=== PATIENT | female | born 2000 | race Hispanic/Latino ===

== ENCOUNTER 2021-07-03 08:13 | Emergency (ER) | payer OTHER ==
--- OUTSIDE RECORDS SUMMARY | 2021-07-03 08:23 | XMS REPORT | Continuity of Care Document ---
:2000 Author Organization [facility] t Address [address] [place] [address] Care Team Providers Name Role Phone Chun CRAIG, A Primary Care Physician Chan CRAIG, Gene Attending Clinician Chun CRAIG, Jolanta Attending Clinician Doctor Unassigned, Name Attending Clinician Unavailable JESUS GILES Attending Clinician Unavailable JESUS GILES Attending Clinician Unavailable CHUN, Jolanta Attending Clinician Unavailable Lab, Fam Pob I Attending Clinician Unavailable 2, Lab Attending Clinician Unavailable Mango CRAIG, J Attending Clinician Payers Payer Name Policy Type Policy Number Effective Date Expiration Date S ource Problems Condition Condition Condition Status Onset Resolution Last Treating Co mments Source Name Details Category Date Date Treatment Clinician Date B12 B12 Disease Active [facility] deficiency deficiency 04-17 it y of 00:: [address] 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 03-30 ity of 00:: [address] Vitamin D Vitamin D Disease Active 2019- Uni vers deficiency deficiency 03-30 it y of 00:00: [place] [facility] Urinary Urinary Disease Active [facility] incontinen incontinen 03-28 [place] of [place] due [place] cognitive [place] impairment impairment Br anch Intellectu Intellectu Disease Active U jules al al 02-13 it[facility] [place] disability disability [place] [facility] Mental and Mental and Disease Active U jules behavioral behavioral 02-13 it y of problem problem 00:00: [place] [facility] Medication Medication Disease Active Overview : Univers management management -19 Formattin ity of 00:00: g of this [place] 00 note Medical might be Branch different from the original. 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 00:[place] [facility] thoracolum thoracolum Br anch bar region bar region Irritabili Irritabili Disease Active U jules ty ty 2-15 ity of 00:00: [place] [facility] Anxiety Anxiety Disease Active Univers 2-15 ity of 00:00: [place] [facility] 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 U nivers ly ly 1-20 ity of 00:00: [address] Allergies, Adverse Reactions, Alerts Allergy Allergy Status Severity Reaction(s) Onset Inactive Treating Comm ents Source Name Type Date Date Clinician No Known DA Active [facility]ie 9-05 [place] 00:[facility]: [facility] 00 [facility] No Known DA Active U [facility] Allergie 8-19 [place] 00:[facility]: [facility] 00 [facility] NO KNOWN Drug Active Unknown-Cmnt Un dajuan DRUG Class 3-30 ity of ALLERGIE 00:00: [address] No Known Propensi Active Unknown - Uni vers Drug ty to See comments 3-30 ity of Allergie adverse 00:00: [place] reaction [facility] Social History Social Habit Start Date Stop Date Quantity Comments Source Exposure to Not sure [facility] SARS-CoV-2 [facility] (event) Branch Alcohol intake 2021-03-14 2021-03-14 Current [facility] 00:00:00 00:00:00 non-drinker of [facility] alcohol [place] (finding) Tobacco use and 2012-11-11 2012-11-11 Never used Universit y of exposure 00:00:00 00:00:00 [facility] Sex Assigned At [birth year] Universit y of 00:00:00 00:00:00 [facility] Smoking Status Start Date Stop Date Source Never smoker [facility] Medications Ordered Filled Start Stop Current Ordering Indication Dosage Frequency Signature Comments Components Source Medication Medication Date Date Medication? Clinician (SIG) Name Name LEVETIRACET 2020-07 Yes [id number] GIVE 8 ML Univers AM 100 0-21 BY MOUTH ity of mg/mL oral 00:00[place] [facility] LEVETIRACET 2020-07 Yes [id number] GIVE 8 ML Univers AM 100 0-21 BY MOUTH ity of mg/mL oral 00:00: [place] [facility] ERGOCALCIFE 2020-07 Yes [id number] TAKE 1 Univers ROL, 0-15 CAPSULE BY ity of VITAMIN D2, 00:00: MOUTH [place] 1,250 mcg 00 WEEKLY. Medical (50,000 TAKE WITH Branch unit) FOOD. capsule ERGOCALCIFE 2020-07 Yes [id number] TAKE 1 Univers ROL, 0-15 CAPSULE BY ity of VITAMIN D2, 00:00: MOUTH [place] 1,250 mcg 00 WEEKLY. Medical (50,000 TAKE WITH Branch unit) FOOD. capsule ERGOCALCIFE 2020-07 Yes [id number] TAKE 1 [facility] ROL, 0-15 CAPSULE BY ity of VITAMIN D2, 00:00: MOUTH [place] 1,250 mcg 00 WEEKLY. Medical (50,000 TAKE WITH Branch unit) FOOD. capsule clonazePAM Yes [id number] .5mg Take 1 Univers 0.5 mg 9-13 tablet by ity of tablet 00:00: mouth at [place] 00 bedtime. Medical Branch clonazePAM 2020-0 Yes [id number] .5mg Take 1 [facility] 0.5 mg 9-13 tablet by ity of tablet 00:00: mouth at [place] 00 bedtime. Medical Branch clonazePAM 2020-0 Yes [id number] .5mg Take 1 [facility] 0.5 mg 9-13 tablet by ity of tablet 00:00: mouth at [place] 00 bedtime. Medical Branch clonazePAM 0 Yes [id number] .5mg Take 1 Univers 0.5 mg 9-13 tablet by ity of tablet 00:00: mouth at [place] 00 bedtime. Medical Branch clonazePAM 0 Yes [id number] .5mg Take 1 Univers 0.5 mg 9-13 tablet by ity of tablet 00:00: mouth at [place] 00 bedtime. Medical Branch cloBAZam 0 Yes [id number] 2.5mg Take 1 mL Univers 2.5 mg/mL 8-20 by mouth 2 ity of oral 00:00: (two) [place] suspension 00 times Medical daily. Branch cloBAZam 2020- No [id number] 2.5mg Take 1 mL Univers 2.5 mg/mL 8-20 09-13 by mouth 2 ity of oral 00:00: 00:00 (two) [place] suspension 00 :00 times Medical daily. Branch vitamin 2020-0 Yes [id number] 1000ug Take 1 U nivers B-12 1,000 4-28 tablet by ity of mcg tablet 00:00: mouth [place] 00 daily. [facility] Branch vitamin 2020-0 Yes [id number] 1000ug Take 1 U nivers B-12 1,000 4-28 tablet by ity of mcg tablet 00:00: mouth [place] 00 daily. [facility] vitamin 2020-0 Yes [id number] 1000ug Take 1 U nivers B-12 1,000 4-28 tablet by ity of mcg tablet 00:00: mouth [place] 00 daily. [facility] vitamin 2020-0 Yes [id number] 1000ug Take 1 U nivers B-12 1,000 4-28 tablet by ity of mcg tablet 00:00: mouth [place] 00 daily. [facility] vitamin 2020-0 Yes [id number] 1000ug Take 1 U nivers B-12 1,000 4-28 tablet by ity of mcg tablet 00:00: mouth [place] 00 daily. [facility] vitamin 2020-0 Yes [id number] 1000ug Take 1 U nivers B-12 1,000 4-28 tablet by ity of mcg tablet 00:00: mouth [place] 00 daily. [facility] vitamin 2020-0 Yes [id number] 1000ug Take 1 U nivers B-12 1,000 4-28 tablet by ity of mcg tablet 00:00: mouth [place] 00 daily. [facility] LEVETIRACET 2020-0 Yes [id number] GIVE 8 ML [facility] AM 100 4-20 BY MOUTH ity of mg/mL oral 00:00: TWICE [place] 00 DAY [facility] LEVETIRACET 2020-0 Yes [id number] GIVE 8 ML [facility] AM 100 4-20 BY MOUTH ity of mg/mL oral 00:00: TWICE [place] 00 DAY [facility] LEVETIRACET 2020-0 Yes [id number] GIVE 8 ML [facility] AM 100 4-20 BY MOUTH ity of mg/mL oral 00:00: TWICE [place] 00 DAY [facility] LEVETIRACET 2020-0 Yes [id number] GIVE 8 ML [facility] AM 100 4-20 BY MOUTH ity of mg/mL oral 00:00: TWICE [place] 00 DAY [facility] LEVETIRACET 2020-0 Yes [id number] GIVE 8 ML [facility] AM 100 4-20 BY MOUTH ity of mg/mL oral 00:00: TWICE [place] solution 00 DAY Medical Branch LEVETIRACET 0 Yes [id number] GIVE 8 ML [facility] AM 100 4-20 BY MOUTH ity of mg/mL oral 00:00: TWICE [place] [facility] LEVETIRACET 1- No [id number] GIVE 8 ML Univers AM 100 4-20 10-21 BY MOUTH ity of mg/mL oral 00:00: 00:00 TWICE A [place] solution 00 :00 DAY Medical Branch ergocalcife 0 Yes [id number] Take 1 Univers rol, 4-19 capsule by ity of vitamin d2, 00:00: mouth [place] 1,250 mcg 00 weekly. Medical (50,000 Take with Branch unit) food. capsule ergocalcife 2020-0 Yes [id number] Take 1 [facility] rol, 4-19 capsule by ity of vitamin d2, 00:00: mouth [place] 1,250 mcg 00 weekly. Medical (50,000 Take with Branch unit) food. capsule ergocalcife 2020-0 Yes [id number] Take 1 [facility] rol, 4-19 capsule by ity of vitamin d2, 00:00: mouth [place] 1,250 mcg 00 weekly. Medical (50,000 Take with Branch unit) food. capsule ergocalcife 2020-0 Yes [id number] Take 1 [facility] rol, 4-19 capsule by ity of vitamin d2, 00:00: mouth [place] 1,250 mcg 00 weekly. Medical (50,000 Take with Branch unit) food. capsule ergocalcife 2020-0 Yes [id number] Take 1 Univers rol, 4-19 capsule by ity of vitamin d2, 00:00: mouth [place] 1,250 mcg 00 weekly. Medical (50,000 Take with Branch unit) food. capsule ergocalcife 2020-0 Yes [id number] Take 1 Univers rol, 4-19 capsule by ity of vitamin d2, 00:00: mouth [place] 1,250 mcg 00 weekly. Medical (50,000 Take with Branch unit) food. capsule ergocalcife 2020-0 Yes [id number] Take 1 Univers rol, 4-19 capsule by ity of vitamin d2, 00:00: mouth [place] 1,250 mcg 00 weekly. Medical (50,000 Take with Branch unit) food. capsule ergocalcife 1- No [id number] Take 1 [facility] rol, 4-19 10-15 capsule by ity of vitamin d2, 00:00: 00:00 [place] 1,250 [place]cg 00 :00 weekly. Medical (50,000 Take with Branch unit) food. capsule LEVETIRACET 0 Yes [id number] GIVE 8 ML [facility] AM 100 1-20 BY MOUTH ity of mg/mL oral 00:00: TWICE [place] solution 00 DAY [facility] Branch LEVETIRACET 0 Yes [id number] GIVE 8 ML [facility] AM 100 1-20 BY MOUTH ity of mg/mL oral 00:00: TWICE [place] 00 DAY [facility] LEVETIRACET 0 Yes [id number] GIVE 8 ML Univers AM 100 1-20 BY MOUTH ity of mg/mL oral 00:00: TWICE [place] 00 DAY [facility] LEVETIRACET 0 Yes [id number] GIVE 8 ML [facility] AM 100 1-20 BY MOUTH ity of mg/mL oral 00:00: TWICE [place] 00 DAY [facility] LEVETIRACET 0 2021- No [id number] GIVE 8 ML Univers AM 100 1-20 04-20 BY MOUTH ity of mg/mL oral 00:00: 00:00 TWICE A [place] solution 00 :00 DAY [facility] vitamin 2020-0 Yes [id number] 1000ug Take 1 U nivers B-12 1,000 9-23 tablet by ity of mcg tablet 00:00: mouth [place] 00 daily. [facility] vitamin 2020-0 Yes [id number] 1000ug Take 1 U nivers B-12 1,000 9-23 tablet by ity of mcg tablet 00:00: mouth [place] 00 daily. [facility] vitamin 2020-0 Yes [id number] 1000ug Take 1 U nivers B-12 1,000 9-23 tablet by ity of mcg tablet 00:00: mouth [place] 00 daily. [facility] vitamin 2020-0 Yes [id number] 1000ug Take 1 U nivers B-12 1,000 9-23 tablet by ity of mcg tablet 00:00: mouth [place] 00 daily. [facility] vitamin 2020-0 Yes [id number] 1000ug Take 1 U nivers B-12 1,000 9-23 tablet by ity of mcg tablet 00:00: mouth [place] 00 daily. [facility] vitamin 2020-0 Yes [id number] 1000ug Take 1 U nivers B-12 1,000 9-23 tablet by ity of mcg tablet 00:00: mouth [place] 00 daily. [facility] vitamin 2020-0 Yes [id number] 1000ug Take 1 U nivers B-12 1,000 9-23 tablet by ity of mcg tablet 00:00: mouth [place] 00 daily. [facility] vitamin 2020-0 Yes [id number] 1000ug Take 1 U nivers B-12 1,000 9-23 tablet by ity of mcg tablet 00:00: mouth [place] 00 daily. [facility] vitamin 2020-0 Yes [id number] 1000ug Take 1 U nivers B-12 1,000 9-23 tablet by ity of mcg tablet 00:00: mouth [place] 00 daily. [facility] vitamin 2020-0 Yes [id number] 1000ug Take 1 U nivers B-12 1,000 9-23 tablet by ity of mcg tablet 00:00: mouth [place] 00 daily. [facility] vitamin 2020-0 Yes [id number] 1000ug Take 1 U nivers B-12 1,000 9-23 tablet by ity of mcg tablet 00:00: mouth [place] 00 daily. [facility] vitamin 2020-0 Yes [id number] 1000ug Take 1 U nivers B-12 1,000 9-23 tablet by ity of mcg tablet 00:00: mouth [place] 00 daily. [facility] vitamin 2020-0 2020- No [id number] 1000ug Take 1 Univers B-12 1,000 9-23 04-28 tablet by ity of mcg tablet 00:00: 00:00 mouth [place] 00 :00 daily. [facility] sulfamethox 2019-0 2020- No [id number] 1{tbl} Take 1 Univers azole-trime 9-23 10-04 tablet by it y of thoprim 00:00: 04:59 mouth 2 [place] 800-160 mg 00 :00 (two) Medical per tablet times Branch daily for 10 days. sulfamethox 2019-0 2020- No [id number] 1{tbl} Take 1 Univers azole-trime 9-23 10-04 tablet by it y of thoprim 00:00: 04:59 mouth 2 [place] 800-160 mg 00 :00 (two) Medical per tablet times Branch daily for 10 days. ergocalcife 2020-0 Yes [id number] Take 1 Univers rol, 9-05 capsule by ity of vitamin d2, 00:00: mouth [place] 1,250 mcg 00 weekly. Medical (50,000 Take with Branch unit) food. capsule ergocalcife 2020-0 Yes [id number] Take 1 Univers rol, 9-05 capsule by ity of vitamin d2, 00:00: mouth [place] 1,250 mcg 00 weekly. Medical (50,000 Take with Branch unit) food. capsule ergocalcife 2020-0 Yes [id number] Take 1 Univers rol, 9-05 capsule by ity of vitamin d2, 00:00: mouth [place] 1,250 mcg 00 weekly. Medical (50,000 Take with Branch unit) food. capsule ergocalcife 2020-0 Yes [id number] Take 1 Univers rol, 9-05 capsule by ity of vitamin d2, 00:00: mouth [place] 1,250 mcg 00 weekly. Medical (50,000 Take with Branch unit) food. capsule ergocalcife 2020-0 Yes [id number] Take 1 Univers rol, 9-05 capsule by ity of vitamin d2, 00:00: mouth [place] 1,250 mcg 00 weekly. Medical (50,000 Take with Branch unit) food. capsule ergocalcife 2020-0 Yes [id number] Take 1 Univers rol, 9-05 capsule by ity of vitamin d2, 00:00: mouth [place] 1,250 mcg 00 weekly. Medical (50,000 Take with Branch unit) food. capsule ergocalcife 2020-0 Yes [id number] Take 1 Univers rol, 9-05 capsule by ity of vitamin d2, 00:00: mouth [place] 1,250 mcg 00 weekly. Medical (50,000 Take with Branch unit) food. capsule ergocalcife 2020-0 Yes [id number] Take 1 Univers rol, 9-05 capsule by ity of vitamin d2, 00:00: mouth [place] 1,250 mcg 00 weekly. Medical (50,000 Take with Branch unit) food. capsule ergocalcife 2020-0 Yes [id number] Take 1 Univers rol, 9-05 capsule by ity of vitamin d2, 00:00: mouth [place] 1,250 mcg 00 weekly. Medical (50,000 Take with Branch unit) food. capsule ergocalcife 2020-0 Yes [id number] Take 1 Univers rol, 03-30 capsule by ity of vitamin d2, 00:00: mouth [place] 1,250 mcg 00 weekly. Medical (50,000 Take with Branch unit) food. capsule ergocalcife 2020-0 Yes [id number] Take 1 Univers rol, 03-30 capsule by ity of vitamin d2, 00:00: mouth [place] 1,250 mcg 00 weekly. Medical (50,000 Take with Branch unit) food. capsule ergocalcife 2020-0 2020- No [id number] Take 1 [facility] rol, 03-30 capsule by ity of vitamin d2, 00:00: 00:00 [place] 1,250 [place]cg 00 :00 weekly. Medical (50,000 Take with Branch unit) food. capsule ergocalcife 2020-0 2020- No [id number] Take 1 [facility] rol, 03-30 capsule by ity of vitamin d2, 00:00: 00:00 [place] 1,250 [place]cg 00 :00 weekly. Medical (50,000 Take with Branch unit) food. capsule CALCIUM 2020-0 Yes Take by Univer s CARBONATE/V 03-28 mouth. ity of ITAMIN D3 20:17: [place] (CALCIUM + 57 Medical D ORAL) Branch CALCIUM 2020-0 Yes Take by Univer s CARBONATE/V 03-28 mouth. ity of ITAMIN D3 20:17: [place] (CALCIUM + 57 Medical D ORAL) Branch CALCIUM 2020-0 Yes Take by Univer s CARBONATE/V 03-28 mouth. ity of ITAMIN D3 20:17: [place] (CALCIUM + 57 Medical D ORAL) Branch CALCIUM 2020-0 Yes Take by Univer s CARBONATE/V 03-28 mouth. ity of ITAMIN D3 20:17: [place] (CALCIUM + 57 Medical D ORAL) Branch CALCIUM 2020-0 Yes Take by Univer s CARBONATE/V 03-28 mouth. ity of ITAMIN D3 20:17: [place] (CALCIUM + 57 Medical D ORAL) Branch CALCIUM 2020-0 Yes Take by Univer s CARBONATE/V 03-28 mouth. ity of ITAMIN D3 20:17: [place] (CALCIUM + 57 Medical D ORAL) Branch CALCIUM 2020-0 Yes Take by Univer s CARBONATE/V 03-28 mouth. ity of ITAMIN D3 20:17: [place] (CALCIUM + 57 Medical D ORAL) Branch CALCIUM 2020-0 Yes Take by Univer s CARBONATE/V 03-28 mouth. ity of ITAMIN D3 20:17: [place] (CALCIUM + 57 Medical D ORAL) Branch CALCIUM 2020-0 Yes Take by Univer s CARBONATE/V 03-28 mouth. ity of ITAMIN D3 20:17: [place] (CALCIUM + 57 Medical D ORAL) Branch CALCIUM 2020-0 Yes Take by Univer s CARBONATE/V 03-28 mouth. ity of ITAMIN D3 20:17: [place] (CALCIUM + 57 Medical D ORAL) Branch CALCIUM 2020-0 Yes Take by Univer s CARBONATE/V 03-28 mouth. ity of ITAMIN D3 20:17: [place] (CALCIUM + 57 Medical D ORAL) Branch CALCIUM 2020-0 Yes Take by Univer s CARBONATE/V 03-28 mouth. ity of ITAMIN D3 20:17: [place] (CALCIUM + 57 Medical D ORAL) Branch CALCIUM 2020-0 Yes Take by Univer s CARBONATE/V 03-28 mouth. ity of ITAMIN D3 20:17: [place] (CALCIUM + 57 Medical D ORAL) Branch CALCIUM 2020-0 Yes Take by Univer s CARBONATE/V 03-28 mouth. ity of ITAMIN D3 20:17: [place] (CALCIUM + 57 Medical D ORAL) Branch CALCIUM 2020-0 Yes Take by Univer s CARBONATE/V 03-28 mouth. ity of ITAMIN D3 20:17: [place] (CALCIUM + 57 Medical D ORAL) Branch CALCIUM 2020-0 Yes Take by Univer s CARBONATE/V 03-28 mouth. ity of ITAMIN D3 20:17: [place] (CALCIUM + 57 Medical D ORAL) Branch CALCIUM 2020-0 Yes Take by Univer s CARBONATE/V - mouth. ity of ITAMIN D3 20:17: [place] (CALCIUM + 57 Medical D ORAL) Branch CALCIUM 2020-0 Yes Take by Univer s CARBONATE/V -03 mouth. ity of ITAMIN D3 20:17: [place] (CALCIUM + 57 Medical D ORAL) Branch CALCIUM 2020-0 Yes Take by Univer s CARBONATE/V -03 mouth. ity of ITAMIN D3 20:17: [place] (CALCIUM + 57 Medical D ORAL) Branch CALCIUM 2020-0 Yes Take by Univer s CARBONATE/V 9-03 mouth. ity of ITAMIN D3 20:17: [place] (CALCIUM + 57 Medical D ORAL) Branch CALCIUM 2020-0 Yes Take by Univer s CARBONATE/V 9-03 mouth. ity of ITAMIN D3 15:17: [place] (CALCIUM + 57 Medical D ORAL) Branch CALCIUM 2020-0 Yes Take by Univer s CARBONATE/V 9-03 mouth. ity of ITAMIN D3 15:17: [place] (CALCIUM + 57 Medical D ORAL) Branch CALCIUM 2020-0 Yes Take by Univer s CARBONATE/V 9-03 mouth. ity of ITAMIN D3 15:17: [place] (CALCIUM + 57 Medical D ORAL) Branch CALCIUM 2020-0 Yes Take by Univer s CARBONATE/V 9-03 mouth. ity of ITAMIN D3 15:17: [place] (CALCIUM + 57 Medical D ORAL) Branch CALCIUM 2020-0 Yes Take by Univer s CARBONATE/V 9-03 mouth. ity of ITAMIN D3 15:17: [place] (CALCIUM + 57 Medical D ORAL) Branch clonazePAM 2020-0 Yes [id number] Take one Univers 0.5 mg 9-02 tablet ity of tablet 00:00: before [place] 00 bedtime. Medical You may Branch give a tablet in the cheek to help stop a seizure lasting more than 5 minutes. levETIRAcet 2020-0 Yes [id number] 800mg Take 8 mL Univers am 100 9-02 by mouth 2 ity of mg/mL oral 00:00: (two) [place] solution 00 times Medical daily. Branch clonazePAM 2020-0 Yes [id number] Take one Univers 0.5 mg 9-02 tablet ity of tablet 00:00: before [place] 00 bedtime. Medical You may Branch give a tablet in the cheek to help stop a seizure lasting more than 5 minutes. levETIRAcet 2020-0 Yes [id number] 800mg Take 8 mL Univers am 100 9-02 by mouth 2 ity of mg/mL oral 00:00: (two) [place] solution 00 times Medical daily. Branch clonazePAM 2020-0 Yes [id number] Take one Univers 0.5 mg 9-02 tablet ity of tablet 00:00: before [place] 00 bedtime. Medical You may Branch give a tablet in the cheek to help stop a seizure lasting more than 5 minutes. levETIRAcet 2020-0 Yes [id number] 800mg Take 8 mL Univers am 100 9-02 by mouth 2 ity of mg/mL oral 00:00: (two) [place] solution 00 times Medical daily. Branch clonazePAM 2020-0 Yes [id number] Take one Univers 0.5 mg 9-02 tablet ity of tablet 00:00: before [place] 00 bedtime. Medical You may Branch give a tablet in the cheek to help stop a seizure lasting more than 5 minutes. levETIRAcet 2020-0 Yes [id number] 800mg Take 8 mL Univers am 100 9-02 by mouth 2 ity of mg/mL oral 00:00: (two) [place] solution 00 times Medical daily. Branch clonazePAM 2020-0 Yes [id number] Take one Univers 0.5 mg 9-02 tablet ity of tablet 00:00: before [place] 00 bedtime. Medical You may Branch give a tablet in the cheek to help stop a seizure lasting more than 5 minutes. levETIRAcet 2020-0 Yes [id number] 800mg Take 8 mL Univers am 100 9-02 by mouth 2 ity of mg/mL oral 00:00: (two) [place] solution 00 times Medical daily. Branch clonazePAM 2020-0 Yes [id number] Take one Univers 0.5 mg 9-02 tablet ity of tablet 00:00: before [place] 00 bedtime. Medical You may Branch give a tablet in the cheek to help stop a seizure lasting more than 5 minutes. levETIRAcet 2020-0 Yes [id number] 800mg Take 8 mL Univers am 100 9-02 by mouth 2 ity of mg/mL oral 00:00: (two) [place] solution 00 times Medical daily. Branch clonazePAM 2020-0 Yes [id number] Take one Univers 0.5 mg 9-02 tablet ity of tablet 00:00: before [place] 00 bedtime. Medical You may Branch give a tablet in the cheek to help stop a seizure lasting more than 5 minutes. levETIRAcet 2020-0 Yes [id number] 800mg Take 8 mL Univers am 100 9-02 by mouth 2 ity of mg/mL oral 00:00: (two) [place] solution 00 times Medical daily. Branch clonazePAM 2020-0 Yes [id number] Take one Univers 0.5 mg 9-02 tablet ity of tablet 00:00: before [place] 00 bedtime. Medical You may Branch give a tablet in the cheek to help stop a seizure lasting more than 5 minutes. levETIRAcet 2020-0 Yes [id number] 800mg Take 8 mL [facility] am 100 9-02 by mouth 2 ity of mg/mL oral 00:00: (two) [place] solution 00 times Medical daily. Branch clonazePAM 2020-0 Yes [id number] Take one [facility] 0.5 mg 9-02 tablet ity of tablet 00:00: before [place] 00 bedtime. Medical You may Branch give a tablet in the cheek to help stop a seizure lasting more than 5 minutes. levETIRAcet 2020-0 Yes [id number] 800mg Take 8 mL Univers am 100 9-02 by mouth 2 ity of mg/mL oral 00:00: (two) [place] solution 00 times Medical daily. Branch clonazePAM 2020-0 Yes [id number] Take one [facility] 0.5 mg 9-02 tablet ity of tablet 00:00: before [place] 00 bedtime. Medical You may Branch give a tablet in the cheek to help stop a seizure lasting more than 5 minutes. levETIRAcet 2020-0 Yes [id number] 800mg Take 8 mL Univers am 100 9-02 by mouth 2 ity of mg/mL oral 00:00: (two) [place] solution 00 times Medical daily. Branch clonazePAM 2020-0 Yes [id number] Take one Univers 0.5 mg 9-02 tablet ity of tablet 00:00: before [place] 00 bedtime. Medical You may Branch give a tablet in the cheek to help stop a seizure lasting more than 5 minutes. levETIRAcet 2020-0 Yes [id number] 800mg Take 8 mL [facility] am 100 9-02 by mouth 2 ity of mg/mL oral 00:00: (two) [place] solution 00 times Medical daily. Branch clonazePAM 2020-0 Yes [id number] Take one [facility] 0.5 mg 9-02 tablet ity of tablet 00:00: before [place] 00 bedtime. Medical You may Branch give a tablet in the cheek to help stop a seizure lasting more than 5 minutes. levETIRAcet 2020-0 Yes [id number] 800mg Take 8 mL Univers am 100 9-02 by mouth 2 ity of mg/mL oral 00:00: (two) [place] solution 00 times Medical daily. Branch clonazePAM 2020-0 Yes [id number] Take one Univers 0.5 mg 9-02 tablet ity of tablet 00:00: before [place] 00 bedtime. Medical You may Branch give a tablet in the cheek to help stop a seizure lasting more than 5 minutes. levETIRAcet 2020-0 Yes [id number] 800mg Take 8 mL [facility] am 100 9-02 by mouth 2 ity of mg/mL oral 00:00: (two) [place] solution 00 times Medical daily. Branch clonazePAM 2020-0 Yes [id number] Take one [facility] 0.5 mg 9-02 tablet ity of tablet 00:00: before [place] 00 bedtime. Medical You may Branch give a tablet in the cheek to help stop a seizure lasting more than 5 minutes. levETIRAcet 2020-0 Yes [id number] 800mg Take 8 mL [facility] am 100 9-02 by mouth 2 ity of mg/mL oral 00:00: (two) [place] solution 00 times Medical daily. Branch clonazePAM 2020-0 Yes [id number] Take one [facility] 0.5 mg 9-02 tablet ity of tablet 00:00: before 00 bedtime. Medical You may Branch give a tablet in the cheek to help stop a seizure lasting more than 5 minutes. clonazePAM 2020-0 Yes [id number] Take one [facility] 0.5 mg 9-02 tablet ity of tablet 00:00: before [place] 00 bedtime. Medical You may Branch give a tablet in the cheek to help stop a seizure lasting more than 5 minutes. clonazePAM 2020-0 Yes [id number] Take one [facility] 0.5 mg 9-02 tablet ity of tablet 00:00: before [place] 00 bedtime. Medical You may Branch give a tablet in the cheek to help stop a seizure lasting more than 5 minutes. clonazePAM 2020-0 Yes [id number] Take one [facility] 0.5 mg 9-02 tablet ity of tablet 00:00: before [place] 00 bedtime. Medical You may Branch give a tablet in the cheek to help stop a seizure lasting more than 5 minutes. clonazePAM 2020-0 Yes [id number] Take one [facility] 0.5 mg 9-02 tablet ity of tablet 00:00: before [place] 00 bedtime. Medical You may Branch give a tablet in the cheek to help stop a seizure lasting more than 5 minutes. clonazePAM 2020-0 Yes [id number] Take one [facility] 0.5 mg 9-02 tablet ity of tablet 00:00: before [place] 00 bedtime. Medical You may Branch give a tablet in the cheek to help stop a seizure lasting more than 5 minutes. clonazePAM 2020-0 2020- No [id number] Take one [facility] 0.5 mg 9- 08-20 tablet ity of tablet 00:00: 00:00 before [place] 00 :00 bedtime. Medical You may Branch give a tablet in the cheek to help stop a seizure lasting more than 5 minutes. levETIRAcet 2020-0 2020- No [id number] 800mg Take 8 mL [facility] am 100 9-02 01-20 by mouth 2 ity of mg/mL oral 00:00: 00:00 (two) [place] solution 00 :00 times Medical daily. Branch levETIRAcet 2020-0 Yes [id number] 800mg Take 8 mL [facility] am 100 1-17 by mouth 2 ity of mg/mL oral 00:00: (two) [place] solution 00 times Medical daily. Branch clonazePAM 2020-0 Yes [id number] Take one [facility] 0.5 mg 1-17 tablet ity of tablet 00:00: before [place] 00 bedtime. Medical You may Branch give a tablet in the cheek to help stop a seizure lasting more than 5 minutes. levETIRAcet 2020-0 Yes [id number] 800mg Take 8 mL [facility] am 100 1-17 by mouth 2 ity of mg/mL oral 00:00: (two) [place] solution 00 times Medical daily. Branch clonazePAM 2020-0 Yes [id number] Take one [facility] 0.5 mg 1-17 tablet ity of tablet 00:00: before [place] 00 bedtime. Medical You may Branch give a tablet in the cheek to help stop a seizure lasting more than 5 minutes. levETIRAcet 2020-0 Yes [id number] 800mg Take 8 mL [facility] am 100 1-17 by mouth 2 ity of mg/mL oral 00:00: (two) [place] solution 00 times Medical daily. Branch clonazePAM 2020-0 Yes [id number] Take one [facility] 0.5 mg 1-17 tablet ity of tablet 00:00: before [place] 00 bedtime. Medical You may Branch give a tablet in the cheek to help stop a seizure lasting more than 5 minutes. levETIRAcet 2020-0 Yes [id number] 800mg Take 8 mL [facility] am 100 1-17 by mouth 2 ity of mg/mL oral 00:00: (two) [place] solution 00 times Medical daily. Branch clonazePAM 2020-0 Yes [id number] Take one [facility] 0.5 mg 1-17 tablet ity of tablet 00:00: before [place] 00 bedtime. Medical You may Branch give a tablet in the cheek to help stop a seizure lasting more than 5 minutes. levETIRAcet 2020-0 Yes [id number] 800mg Take 8 mL [facility] am 100 1-17 by mouth 2 ity of mg/mL oral 00:00: (two) [place] solution 00 times Medical daily. Branch clonazePAM 2020-0 Yes [id number] Take one [facility] 0.5 mg 1-17 tablet ity of tablet 00:00: before [place] 00 bedtime. Medical You may Branch give a tablet in the cheek to help stop a seizure lasting more than 5 minutes. levETIRAcet 2020-0 Yes [id number] 800mg Take 8 mL [facility] am 100 1-17 by mouth 2 ity of mg/mL oral 00:00: (two) [place] solution 00 times Medical daily. Branch clonazePAM 2020-0 Yes [id number] Take one [facility] 0.5 mg 1-17 tablet ity of tablet 00:00: before [place] 00 bedtime. Medical You may Branch give a tablet in the cheek to help stop a seizure lasting more than 5 minutes. levETIRAcet 2020-0 Yes [id number] 800mg Take 8 mL [facility] am 100 1-17 by mouth 2 ity of mg/mL oral 00:00: (two) [place] solution 00 times Medical daily. Branch clonazePAM 2020-0 Yes [id number] Take one [facility] 0.5 mg 1-17 tablet ity of tablet 00:00: before [place] 00 bedtime. Medical You may Branch give a tablet in the cheek to help stop a seizure lasting more than 5 minutes. levETIRAcet 2020-0 2020- No [id number] 800mg Take 8 mL [facility] am 100 1-17 09-02 by mouth 2 ity of mg/mL oral 00:00: 00:00 (two) [place] solution 00 :00 times Medical daily. Branch clonazePAM 2020-0 2020- No [id number] Take one [facility] 0.5 mg 1-17 - tablet ity of tablet 00:00: 00:00 before [place] 00 :00 bedtime. Medical You may Branch give a tablet in the cheek to help stop a seizure lasting more than 5 minutes. levETIRAcet 2019- Yes [id number] 800mg Take 8 mL [facility] am 100 0-03 by mouth 2 ity of mg/mL oral 00:00: (two) [place] solution 00 times Medical daily. Branch levETIRAcet 2018- 2020- No [id number] 800mg Take 8 mL [facility] am 100 0-03 01-17 by mouth 2 ity of mg/mL oral 00:00: 00:00 (two) [place] solution 00 :00 times Medical daily. Branch levETIRAcet 2018-2019- No [id number] 800mg Take 8 mL [facility] am 100 0-03 01-17 by mouth 2 ity of mg/mL oral 00:00: 00:00 (two) [place] solution 00 :00 times Medical daily. Branch levETIRAcet 2019- Yes [id number] 800mg Take 8 mL [facility] am 100 7-22 by mouth 2 ity of mg/mL oral 00:00: (two) [place] solution 00 times Medical daily. Branch clonazePAM 2018- Yes [id number] Take one [facility] 0.5 mg 7-22 tablet ity of tablet 00:00: before [place] 00 bedtime. Medical You may Branch give a tablet in the cheek to help stop a seizure lasting more than 5 minutes. levETIRAcet 2019- Yes [id number] 800mg Take 8 mL [facility] am 100 7-22 by mouth 2 ity of mg/mL oral 00:00: (two) [place] solution 00 times Medical daily. Branch clonazePAM 2019- Yes [id number] Take one [facility] 0.5 mg 7-22 tablet ity of tablet 00:00: before [place] 00 bedtime. Medical You may Branch give a tablet in the cheek to help stop a seizure lasting more than 5 minutes. clonazePAM 2019-0 Yes [id number] Take one [facility] 0.5 mg 7-22 tablet ity of tablet 00:00: before [place] 00 bedtime. Medical You may Branch give a tablet in the cheek to help stop a seizure lasting more than 5 minutes. clonazePAM 2019- No [id number] Take one [facility] 0.5 mg 7-22 -17 tablet ity of tablet 00:00: 00:00 before [place] 00 :00 bedtime. Medical You may Branch give a tablet in the cheek to help stop a seizure lasting more than 5 minutes. clonazePAM 2019- No [id number] Take one [facility] 0.5 mg 7-22 -17 tablet ity of tablet 00:00: 00:00 before [place] 00 :00 bedtime. Medical You may Branch give a tablet in the cheek to help stop a seizure lasting more than 5 minutes. CALCIUM Yes Take by [facility] CARBONATE/V 3-22 mouth. ity of ITAMIN D3 15:40: [place] (CALCIUM + 14 Medical D ORAL) Branch CALCIUM Yes Take by Univer s CARBONATE/V 3-22 mouth. ity of ITAMIN D3 15:40: [place] (CALCIUM + 14 Medical D ORAL) Branch CALCIUM Yes Take by Univer s CARBONATE/V 3-22 mouth. ity of ITAMIN D3 15:40: [place] (CALCIUM + 14 Medical D ORAL) Branch CALCIUM Yes Take by Univer s CARBONATE/V 3-22 mouth. ity of ITAMIN D3 15:40: [place] (CALCIUM + 14 Medical D ORAL) Branch CALCIUM Yes Take by [facility]iver s CARBONATE/V 3-22 mouth. ity of ITAMIN D3 15:40: [place] (CALCIUM + 14 Medical D ORAL) Branch CALCIUM Yes Take by Univer s CARBONATE/V 3-22 mouth. ity of ITAMIN D3 15:40: [place] (CALCIUM + 14 Medical D ORAL) Branch CALCIUM Yes Take by Univer s CARBONATE/V 3-22 mouth. ity of ITAMIN D3 15:40: [place] (CALCIUM + 14 Medical D ORAL) Branch CALCIUM Yes Take by Univer s CARBONATE/V 3-22 mouth. ity of ITAMIN D3 15:40: [place] (CALCIUM + 14 Medical D ORAL) Branch CALCIUM Yes Take by Univer s CARBONATE/V 3-22 mouth. ity of ITAMIN D3 15:40: [place] (CALCIUM + 14 Medical D ORAL) Branch CALCIUM Yes Take by Univer s CARBONATE/V 3-22 mouth. ity of ITAMIN D3 15:40: [place] (CALCIUM + 14 Medical D ORAL) Branch CALCIUM 2017-0 Yes Take by [facility] s CARBONATE/V 3-22 mouth. ity of ITAMIN D3 15:40: [place] (CALCIUM + 14 Medical D ORAL) Branch Immunizations Ordered Filled Immunization Date Status Comments [facility] e Immunization Name Name SARS-COV-2 COVID-19 2020-10-04 Completed Unive rsity of MODERNA VACCINE 00:00:00 [facility] ical Branch SARS-COV-2 COVID-19 2020-10-04 Completed Unive rsity of MODERNA VACCINE 00:00:00 [facility] ical Branch SARS-COV-2 COVID-19 2020-10-04 Completed Unive rsity of MODERNA VACCINE 00:00:00 [facility] ical Branch SARS-COV-2 COVID-19 2020-10-04 Completed Unive rsity of MODERNA VACCINE 00:00:00 [facility] ical Branch SARS-COV-2 COVID-19 2020-10-04 Completed Unive rsity of MODERNA VACCINE 00:00:00 [facility] ical Branch SARS-COV-2 COVID-19 2020-10-04 Completed Unive rsity of MODERNA VACCINE 00:00:00 [facility] ical Branch SARS-COV-2 COVID-19 2020-10-04 Completed Unive rsity of MODERNA VACCINE 00:00:00 [facility] ical Branch SARS-COV-2 COVID-19 2020-10-04 Completed Unive rsity of MODERNA VACCINE 00:00:00 [facility] ical Branch SARS-COV-2 COVID-19 2020-10-04 Completed Unive rsity of MODERNA VACCINE 00:00:00 [facility] ical Branch SARS-COV-2 COVID-19 2020-10-04 Completed Unive rsity of MODERNA VACCINE 00:00:00 [facility] ical Branch SARS-COV-2 COVID-19 2020-08-31 Completed Unive rsity of MODERNA VACCINE 00:00:00 [facility] ical Branch SARS-COV-2 COVID-19 2020-08-31 Completed Unive rsity of MODERNA VACCINE 00:00:00 [facility] ical Branch SARS-COV-2 COVID-19 2020-08-31 Completed Unive rsity of MODERNA VACCINE 00:00:00 [facility] [place] [facility] SARS-COV-2 COVID-19 2020-08-31 Completed Unive rsity of MODERNA VACCINE 00:00:00 [facility] [place] [facility] SARS-COV-2 COVID-19 2020-08-31 Completed Unive rsity of MODERNA VACCINE 00:00:00 [facility] [place] [facility] SARS-COV-2 COVID-19 2020-08-31 Completed Unive rsity of MODERNA VACCINE 00:00:00 [facility] SARS-COV-2 COVID-19 2020-08-31 Completed Unive rsity of MODERNA VACCINE 00:00:00 [facility] [place] [facility] SARS-COV-2 COVID-19 2020-08-31 Completed Unive rsity of MODERNA VACCINE 00:00:00 [facility] [place] [facility] SARS-COV-2 COVID-19 2020-08-31 Completed Unive rsity of MODERNA VACCINE 00:00:00 [facility] [place] [facility] SARS-COV-2 COVID-19 2020-08-31 Completed Unive rsity of MODERNA VACCINE 00:00:00 [facility] [place] [facility] DTAP 2001-02-24 Completed University of 00:00:00 [facility] DTAP 2001-02-24 Completed University of 00:00:00 [facility] DTAP 2001-02-24 Completed University of 00:00:00 [facility] DTAP 2001-02-24 Completed University of 00:00:00 [facility] DTAP 2001-02-24 Completed University of 00:00:00 [facility] DTAP 2001-02-24 Completed University of 00:00:00 [facility] Branch DTAP 2001-02-24 Completed University of 00:00:00 [place] [facility] DTAP 2001-02-24 Completed University of 00:00:00 [facility] Branch DTAP 2001-02-24 Completed University of 00:00:00 [facility] Branch DTAP 2001-02-24 Completed University of 00:00:00 [place] [facility] DTAP 2001-02-24 Completed University of 00:00:00 [place] [facility] DTAP 2001-02-24 Completed University of 00:00:00 [facility] DTAP 2001-02-24 Completed University of 00:00:00 [facility] Branch DTAP 2001-02-24 Completed University of 00:00:00 [facility] Branch DTAP 2001-02-24 Completed University of 00:00:00 [facility] DTAP 2001-02-24 Completed University of 00:00:00 [facility] DTAP 2001-02-24 Completed University of 00:00:00 [facility] DTAP 2001-02-24 Completed University of 00:00:00 [facility] DTAP 2001-02-24 Completed University of 00:00:00 [facility] DTAP 2001-02-24 Completed University of 00:00:00 [facility] DTAP 2001-02-24 Completed University of 00:00:00 [facility] DTAP 2001-02-24 Completed University of 00:00:00 [facility] DTAP 2001-02-24 Completed University of 00:00:00 [facility] DTAP 2001-02-24 Completed University of 00:00:00 [facility] DTAP 2001-02-24 Completed University of 00:00:00 [facility] DTAP 2001-02-24 Completed University of 00:00:00 [facility] DTAP 2001-02-24 Completed University of 00:00:00 [facility] DTAP 2001-02-24 Completed University of 00:00:00 [facility] DTAP 2001-02-24 Completed University of 00:00:00 [facility] DTAP 2001-02-24 Completed University of 00:00:00 [facility] DTAP 2001-02-24 Completed University of 00:00:00 [facility] DTAP 2001-02-24 Completed University of 00:00:00 [facility] DTAP 2001-02-24 Completed University of 00:00:00 [facility] DTAP 2001-02-24 Completed University of 00:00:00 [facility] DTAP 2001-02-24 Completed University of 00:00:00 [facility] DTAP 2001-02-24 Completed University of 00:00:00 [facility] MMR 2000-12-28 Completed University of 00:00:00 [facility] Pneumococcal 7 2000-12-28 Completed University of Conjugate, PCV7 00:00:00 [place] [facility] (Prevnar7) Branch Varicella 2000-12-28 Completed University of (varivax)(chicken 00:00:00 [place] [facility] ed[facility] pox) Branch HIB 4 Dose Schedule 2000-12-28 Completed Unive rsity of 00:00:00 [facility] MMR 2000-12-28 Completed University of 00:00:00 [place] [facility] Pneumococcal 7 2000-12-28 Completed University of Conjugate, PCV7 00:00:00 [place] [facility] (Prevnar7) Branch Varicella 2000-12-28 Completed University of (varivax)(chicken 00:00:00 [place] [facility] pox) Branch HIB 4 Dose Schedule 2000-12-28 Completed Unive rsity of 00:00:00 [facility] Branch MMR 2000-12-28 Completed University of 00:00:00 [facility] Branch Pneumococcal 7 2000-12-28 Completed University of Conjugate, PCV7 00:00:00 [place] [facility] (Prevnar7) Branch Varicella 2000-12-28 Completed University of (varivax)(chicken 00:00:00 [place] edical pox) Branch HIB 4 Dose Schedule 2000-12-28 Completed Unive rsity of 00:00:00 [facility] MMR 2000-12-28 Completed University of 00:00:00 [facility] Pneumococcal 7 2000-12-28 Completed University of Conjugate, PCV7 00:00:00 [place] [facility] (Prevnar7) Branch Varicella 2000-12-28 Completed University of (varivax)(chicken 00:00:00 [place] ed[facility] pox) Branch HIB 4 Dose Schedule 2000-12-28 Completed Unive rsity of 00:00:00 [facility] MMR 2000-12-28 Completed University of 00:00:00 [facility] Pneumococcal 7 2000-12-28 Completed University of Conjugate, PCV7 00:00:00 [place] [facility] (Prevnar7) Branch Varicella 2000-12-28 Completed University of (varivax)(chicken 00:00:00 [place] edical pox) Branch HIB 4 Dose Schedule 2000-12-28 Completed Unive rsity of 00:00:00 [facility] MMR 2000-12-28 Completed University of 00:00:00 [facility] Pneumococcal 7 2000-12-28 Completed University of Conjugate, PCV7 00:00:00 [place] [facility] (Prevnar7) Branch Varicella 2000-12-28 Completed University of (varivax)(chicken 00:00:00 [place] edical pox) Branch HIB 4 Dose Schedule 2000-12-28 Completed Unive rsity of 00:00:00 [facility] MMR 2000-12-28 Completed University of 00:00:00 [facility] Branch Pneumococcal 7 2000-12-28 Completed University of Conjugate, PCV7 00:00:00 [place] [facility] ical (Prevnar7) Branch Varicella 2000-12-28 Completed University of (varivax)(chicken 00:00:00 [place] [facility] pox) Branch HIB 4 Dose Schedule 2000-12-28 Completed Unive rsity of 00:00:00 [facility] MMR 2000-12-28 Completed University of 00:00:00 [facility] Branch Pneumococcal 7 2000-12-28 Completed University of Conjugate, PCV7 00:00:00 [place] [facility] ical (Prevnar7) Branch Varicella 2000-12-28 Completed University of (varivax)(chicken 00:00:00 [place] [facility] pox) Branch HIB 4 Dose Schedule 2000-12-28 Completed Unive rsity of 00:00:00 [facility] MMR 2000-12-28 Completed University of 00:00:00 [facility] Pneumococcal 7 2000-12-28 Completed University of Conjugate, PCV7 00:00:00 [place] [facility] (Prevnar7) Branch Varicella 2000-12-28 Completed University of (varivax)(chicken 00:00:00 [place] edical pox) Branch HIB 4 Dose Schedule 2000-12-28 Completed Unive rsity of 00:00:00 [facility] MMR 2000-12-28 Completed University of 00:00:00 [facility] Pneumococcal 7 2000-12-28 Completed University of Conjugate, PCV7 00:00:00 [place] [facility] (Prevnar7) Branch Varicella 2000-12-28 Completed University of (varivax)(chicken 00:00:00 [place] M edical pox) Branch HIB 4 Dose Schedule 2000-12-28 Completed Unive rsity of 00:00:00 [facility] MMR 2000-12-28 Completed University of 00:00:00 [facility] Branch Pneumococcal 7 2000-12-28 Completed University of Conjugate, PCV7 00:00:00 [place] [facility] ical (Prevnar7) Branch Varicella 2000-12-28 Completed University of (varivax)(chicken 00:00:00 [place] [facility] pox) Branch HIB 4 Dose Schedule 2000-12-28 Completed Unive rsity of 00:00:00 [facility] MMR 2000-12-28 Completed University of 00:00:00 [facility] Pneumococcal 7 2000-12-28 Completed University of Conjugate, PCV7 00:00:00 [place] [facility] ical (Prevnar7) Branch Varicella 2000-12-28 Completed University of (varivax)(chicken 00:00:00 [place] [facility] pox) Branch HIB 4 Dose Schedule 2000-12-28 Completed Unive rsity of 00:00:00 [facility] MMR 2000-12-28 Completed University of 00:00:00 [facility] Pneumococcal 7 2000-12-28 Completed University of Conjugate, PCV7 00:00:00 [place] [facility] (Prevnar7) Branch Varicella 2000-12-28 Completed University of (varivax)(chicken 00:00:00 [place] ed[facility] pox) Branch HIB 4 Dose Schedule 2000-12-28 Completed Unive rsity of 00:00:00 [facility] MMR 2000-12-28 Completed University of 00:00:00 [facility] Pneumococcal 7 2000-12-28 Completed University of Conjugate, PCV7 00:00:00 [place] [facility] (Prevnar7) Branch Varicella 2000-12-28 Completed University of (varivax)(chicken 00:00:00 [place] ed[facility] pox) Branch HIB 4 Dose Schedule 2000-12-28 Completed Unive rsity of 00:00:00 [facility] MMR 2000-12-28 Completed University of 00:00:00 [facility] Pneumococcal 7 2000-12-28 Completed University of Conjugate, PCV7 00:00:00 [place] [facility] (Prevnar7) Branch Varicella 2000-12-28 Completed University of (varivax)(chicken 00:00:00 [place] ed[facility] pox) Branch HIB 4 Dose Schedule 2000-12-28 Completed Unive rsity of 00:00:00 [facility] MMR 2000-12-28 Completed University of 00:00:00 [facility] Pneumococcal 7 2000-12-28 Completed University of Conjugate, PCV7 00:00:00 [place] [facility] (Prevnar7) Branch Varicella 2000-12-28 Completed University of (varivax)(chicken 00:00:00 [place] [facility] pox) Branch HIB 4 Dose Schedule 2000-12-28 Completed Unive rsity of 00:00:00 [facility] MMR 2000-12-28 Completed University of 00:00:00 [facility] Pneumococcal 7 2000-12-28 Completed University of Conjugate, PCV7 00:00:00 [place] [facility] (Prevnar7) Branch Varicella 2000-12-28 Completed University of (varivax)(chicken 00:00:00 [place] [facility] pox) Branch HIB 4 Dose Schedule 2000-12-28 Completed Unive rsity of 00:00:00 [facility] MMR 2000-12-28 Completed University of 00:00:00 [facility] Pneumococcal 7 2000-12-28 Completed University of Conjugate, PCV7 00:00:00 [place] [facility] (Prevnar7) Branch Varicella 2000-12-28 Completed University of (varivax)(chicken 00:00:00 [place] [facility] pox) Branch HIB 4 Dose Schedule 2000-12-28 Completed Unive rsity of 00:00:00 [facility] MMR 2000-12-28 Completed University of 00:00:00 [facility] Pneumococcal 7 2000-12-28 Completed University of Conjugate, PCV7 00:00:00 [place] [facility] (Prevnar7) Branch Varicella 2000-12-28 Completed University of (varivax)(chicken 00:00:00 [place] [facility] pox) Branch HIB 4 Dose Schedule 2000-12-28 Completed Unive rsity of 00:00:00 [facility] MMR 2000-12-28 Completed University of 00:00:00 [facility] Pneumococcal 7 2000-12-28 Completed University of Conjugate, PCV7 00:00:00 [place] [facility] (Prevnar7) Branch Varicella 2000-12-28 Completed University of (varivax)(chicken 00:00:00 [place] [facility] pox) Branch HIB 4 Dose Schedule 2000-12-28 Completed Unive rsity of 00:00:00 [facility] MMR 2000-12-28 Completed University of 00:00:00 [facility] Pneumococcal 7 2000-12-28 Completed University of Conjugate, PCV7 00:00:00 [place] [facility] (Prevnar7) Branch Varicella 2000-12-28 Completed University of (varivax)(chicken 00:00:00 [place] [facility] pox) Branch HIB 4 Dose Schedule 2000-12-28 Completed Unive rsity of 00:00:00 [facility] MMR 2000-12-28 Completed University of 00:00:00 [facility] Pneumococcal 7 2000-12-28 Completed University of Conjugate, PCV7 00:00:00 [place] [facility] (Prevnar7) Branch Varicella 2000-12-28 Completed University of (varivax)(chicken 00:00:00 [place] [facility] pox) Branch HIB 4 Dose Schedule 2000-12-28 Completed Unive rsity of 00:00:00 [facility] MMR 2000-12-28 Completed University of 00:00:00 [facility] Pneumococcal 7 2000-12-28 Completed University of Conjugate, PCV7 00:00:00 [place] [facility] (Prevnar7) Branch Varicella 2000-12-28 Completed University of (varivax)(chicken 00:00:00 [place] ed[facility] pox) Branch HIB 4 Dose Schedule 2000-12-28 Completed Unive rsity of 00:00:00 [facility] MMR 2000-12-28 Completed University of 00:00:00 [facility] Pneumococcal 7 2000-12-28 Completed University of Conjugate, PCV7 00:00:00 [place] [facility] (Prevnar7) Branch Varicella 2000-12-28 Completed University of (varivax)(chicken 00:00:00 [facility] edical pox) Branch HIB 4 Dose Schedule 2000-12-28 Completed Unive rsity of 00:00:00 [facility] MMR 2000-12-28 Completed University of 00:00:00 [facility] Pneumococcal 7 2000-12-28 Completed University of Conjugate, PCV7 00:00:00 [place] [facility] (Prevnar7) Branch Varicella 2000-12-28 Completed University of (varivax)(chicken 00:00:00 [facility] edical pox) Branch HIB 4 Dose Schedule 2000-12-28 Completed Unive rsity of 00:00:00 [facility] MMR 2000-12-28 Completed University of 00:00:00 [facility] Pneumococcal 7 2000-12-28 Completed University of Conjugate, PCV7 00:00:00 [place] [facility] (Prevnar7) Branch Varicella 2000-12-28 Completed University of (varivax)(chicken 00:00:00 [facility] [facility] edical pox) Branch HIB 4 Dose Schedule 2000-12-28 Completed [facility] of 00:00:00 [facility] MMR 2000-12-28 Completed University of 00:00:00 [facility] Pneumococcal 7 2000-12-28 Completed University of Conjugate, PCV7 00:00:00 [place] [facility] (Prevnar7) [facility] Varicella 2000-12-28 Completed University of (varivax)(chicken 00:00:00 [place] [facility] pox) [facility] HIB 4 Dose Schedule 2000-12-28 Completed [facility] of 00:00:00 [facility] MMR 2000-12-28 Completed University of 00:00:00 [facility] Pneumococcal 7 2000-12-28 Completed University of Conjugate, PCV7 00:00:00 [place] [facility] (Prevnar7) [facility] Varicella 2000-12-28 Completed University of (varivax)(chicken 00:00:00 [place] [facility] pox) [facility] HIB 4 Dose Schedule 2000-12-28 Completed [facility] 00:00:00 [facility] MMR 2000-12-28 Completed University of 00:00:00 [facility] MMR 2000-12-28 Completed [facility] of 00:00:00 [facility] Pneumococcal 7 2000-12-28 Completed University of Conjugate, PCV7 00:00:00 [place] [facility] (Prevnar7) [facility] Varicella 2000-12-28 Completed University of (varivax)(chicken 00:00:00 [facility] edical pox) Branch Pneumococcal 7 2000-12-28 Completed University of Conjugate, PCV7 00:00:00 [place] [facility] (Prevnar7) [facility] HIB 4 Dose Schedule 2000-12-28 Completed [facility] 00:00:00 [facility] Varicella 2000-12-28 Completed [facility] of (varivax)(chicken 00:00:00 [place] [facility] pox) [facility] MMR 2000-12-28 Completed [facility] of 00:00:00 [facility] Pneumococcal 7 2000-12-28 Completed University of Conjugate, PCV7 00:00:00 [place] [facility] (Prevnar7) [facility] Varicella 2000-12-28 Completed [facility] (varivax)(chicken 00:00:00 [place] [facility] pox) [facility] HIB 4 Dose Schedule 2000-12-28 Completed [facility] 00:00:00 [facility] MMR 2000-12-28 Completed [facility] of 00:00:00 [facility] Pneumococcal 7 2000-12-28 Completed [facility] of Conjugate, PCV7 00:00:00 [place] [facility] (Prevnar7) [facility] Varicella 2000-12-28 Completed [facility] of (varivax)(chicken 00:00:00 [place] [facility] pox) [facility] HIB 4 Dose Schedule 2000-12-28 Completed [facility] 00:00:00 [facility] MMR 2000-12-28 Completed [facility] of 00:00:00 [facility] Pneumococcal 7 2000-12-28 Completed [facility] of Conjugate, PCV7 00:00:00 [place] [facility] (Prevnar7) [facility] Varicella 2000-12-28 Completed [facility] of (varivax)(chicken 00:00:00 [place] [facility] pox) [facility] HIB 4 Dose Schedule 2000-12-28 Completed [facility] of 00:00:00 [facility] HIB 4 Dose Schedule 2000-12-28 Completed [facility] of 00:00:00 [facility] MMR 2000-12-28 Completed [facility] of 00:00:00 [facility] Pneumococcal 7 2000-12-28 Completed University of Conjugate, PCV7 00:00:00 [place] [facility] (Prevnar7) [facility] Varicella 2000-12-28 Completed [facility] of (varivax)(chicken 00:00:00 [place] [facility] pox) [facility] HIB 4 Dose Schedule 2000-12-28 Completed [facility] 00:00:00 [facility] MMR 2000-12-28 Completed [facility] of 00:00:00 [facility] Pneumococcal 7 2000-12-28 Completed University of Conjugate, PCV7 00:00:00 [place] [facility] (Prevnar7) [facility] Varicella 2000-12-28 Completed University of (varivax)(chicken 00:00:00 [facility] edical pox) Branch HIB 4 Dose Schedule 2000-12-28 Completed [facility] of 00:00:00 [facility] MMR 2000-12-28 Completed [facility] of 00:00:00 [facility] Pneumococcal 7 2000-12-28 Completed University of Conjugate, PCV7 00:00:00 [place] [facility] (Prevnar7) [facility] Varicella 2000-12-28 Completed [facility] of (varivax)(chicken 00:00:00 [place] [facility] pox) [facility] HIB 4 Dose Schedule 2000-12-28 Completed [facility] of 00:00:00 [facility] Pneumococcal 7 2000-09-22 Completed University of Conjugate, PCV7 00:00:00 [place] [facility] (Prevnar7) Branch Polio (IPV/OPV) 2000-09-22 Completed Universit y of 00:00:00 [facility] Pneumococcal 7 2000-09-22 Completed University of Conjugate, PCV7 00:00:00 [place] [facility] (Prevnar7) [facility] Polio (IPV/OPV) 2000-09-22 Completed Universit y of 00:00:00 [facility] Pneumococcal 7 2000-09-22 Completed University of Conjugate, PCV7 00:00:00 [place] [facility] (Prevnar7) Branch Polio (IPV/OPV) 2000-09-22 Completed [facility]it y of 00:00:00 [facility] Pneumococcal 7 2000-09-22 Completed University of Conjugate, PCV7 00:00:00 [place] [facility] (Prevnar7) Branch Polio (IPV/OPV) 2000-09-22 Completed Universit y of 00:00:00 [facility] Pneumococcal 7 2000-09-22 Completed University of Conjugate, PCV7 00:00:00 [place] [facility] (Prevnar7) Branch Polio (IPV/OPV) 2000-09-22 Completed [facility]it y of 00:00:00 [facility] Pneumococcal 7 2000-09-22 Completed [facility] of Conjugate, PCV7 00:00:00 [place] [facility] (Prevnar7) [facility] Polio (IPV/OPV) 2000-09-22 Completed [facility]it y of 00:00:00 [facility] Pneumococcal 7 2000-09-22 Completed University of Conjugate, PCV7 00:00:00 [place] [facility] (Prevnar7) [facility] Polio (IPV/OPV) 2000-09-22 Completed [facility]it y of 00:00:00 [facility] Pneumococcal 7 2000-09-22 Completed University of Conjugate, PCV7 00:00:00 [place] [facility] (Prevnar7) Branch Polio (IPV/OPV) 2000-09-22 Completed [facility]it y of 00:00:00 [facility] Pneumococcal 7 2000-09-22 Completed University of Conjugate, PCV7 00:00:00 [place] [facility] (Prevnar7) Branch Polio (IPV/OPV) 2000-09-22 Completed [facility]it y of 00:00:00 [facility] Pneumococcal 7 2000-09-22 Completed University of Conjugate, PCV7 00:00:00 [place] [facility] (Prevnar7) Branch Polio (IPV/OPV) 2000-09-22 Completed [facility]it y of 00:00:00 [facility] Pneumococcal 7 2000-09-22 Completed University of Conjugate, PCV7 00:00:00 [place] [facility] (Prevnar7) Branch Polio (IPV/OPV) 2000-09-22 Completed [facility]it y of 00:00:00 [facility] Pneumococcal 7 2000-09-22 Completed University of Conjugate, PCV7 00:00:00 [place] [facility] (Prevnar7) Branch Polio (IPV/OPV) 2000-09-22 Completed Universit y of 00:00:00 [facility] Pneumococcal 7 2000-09-22 Completed [facility] of Conjugate, PCV7 00:00:00 [place] [facility] (Prevnar7) Branch Polio (IPV/OPV) 2000-09-22 Completed [facility]it y of 00:00:00 [facility] Pneumococcal 7 2000-09-22 Completed [facility] of Conjugate, PCV7 00:00:00 [place] [facility] (Prevnar7) Branch Polio (IPV/OPV) 2000-09-22 Completed [facility]it y of 00:00:00 [facility] Pneumococcal 7 2000-09-22 Completed [facility] of Conjugate, PCV7 00:00:00 [place] [facility] (Prevnar7) [facility] Polio (IPV/OPV) 2000-09-22 Completed [facility]it y of 00:00:00 [facility] Pneumococcal 7 2000-09-22 Completed [facility] of Conjugate, PCV7 00:00:00 [place] [facility] (Prevnar7) Branch Polio (IPV/OPV) 2000-09-22 Completed [facility]it y of 00:00:00 [facility] Pneumococcal 7 2000-09-22 Completed [facility] of Conjugate, PCV7 00:00:00 [place] [facility] (Prevnar7) Branch Polio (IPV/OPV) 2000-09-22 Completed [facility]it y of 00:00:00 [facility] Pneumococcal 7 2000-09-22 Completed University of Conjugate, PCV7 00:00:00 [place] [facility] (Prevnar7) Branch Polio (IPV/OPV) 2000-09-22 Completed Universit y of 00:00:00 [facility] Pneumococcal 7 2000-09-22 Completed University of Conjugate, PCV7 00:00:00 [place] [facility] (Prevnar7) Branch Polio (IPV/OPV) 2000-09-22 Completed [facility]it y of 00:00:00 [facility] Pneumococcal 7 2000-09-22 Completed University of Conjugate, PCV7 00:00:00 [place] [facility] (Prevnar7) Branch Polio (IPV/OPV) 2000-09-22 Completed [facility]it y of 00:00:00 [facility] Pneumococcal 7 2000-09-22 Completed University of Conjugate, PCV7 00:00:00 [place] [facility] (Prevnar7) Branch Polio (IPV/OPV) 2000-09-22 Completed [facility]it y of 00:00:00 [facility] Pneumococcal 7 2000-09-22 Completed University of Conjugate, PCV7 00:00:00 [place] [facility] (Prevnar7) [facility] Polio (IPV/OPV) 2000-09-22 Completed [facility] y of 00:00:00 [facility] Pneumococcal 7 2000-09-22 Completed University of Conjugate, PCV7 00:00:00 [place] [facility] (Prevnar7) Branch Polio (IPV/OPV) 2000-09-22 Completed [facility]it y of 00:00:00 [facility] Pneumococcal 7 2000-09-22 Completed University of Conjugate, PCV7 00:00:00 [place] [facility] (Prevnar7) Branch Polio (IPV/OPV) 2000-09-22 Completed [facility]it y of 00:00:00 [facility] Pneumococcal 7 2000-09-22 Completed University of Conjugate, PCV7 00:00:00 [place] [facility] (Prevnar7) Branch Polio (IPV/OPV) 2000-09-22 Completed [facility] y of 00:00:00 [facility] Pneumococcal 7 2000-09-22 Completed University of Conjugate, PCV7 00:00:00 [place] [facility] (Prevnar7) [facility] Polio (IPV/OPV) 2000-09-22 Completed [facility] of 00:00:00 [facility] Pneumococcal 7 2000-09-22 Completed University of Conjugate, PCV7 00:00:00 [place] [facility] (Prevnar7) Branch Polio (IPV/OPV) 2000-09-22 Completed [facility] of 00:00:00 [facility] Pneumococcal 7 2000-09-22 Completed [facility] of Conjugate, PCV7 00:00:00 [place] [facility] (Prevnar7) Branch Polio (IPV/OPV) 2000-09-22 Completed [facility] of 00:00:00 [facility] Pneumococcal 7 2000-09-22 Completed [facility] of Conjugate, PCV7 00:00:00 [place] [facility] (Prevnar7) [facility] Pneumococcal 7 2000-09-22 Completed [facility] of Conjugate, PCV7 00:00:00 [place] [facility] (Prevnar7) Branch Polio (IPV/OPV) 2000-09-22 Completed [facility]it y of 00:00:00 [facility] Pneumococcal 7 2000-09-22 Completed University of Conjugate, PCV7 00:00:00 [facility] ical (Prevnar7) Branch Polio (IPV/OPV) 2000-09-22 Completed Universit y of 00:00:00 [facility] Pneumococcal 7 2000-09-22 Completed University of Conjugate, PCV7 00:00:00 [facility] ical (Prevnar7) Branch Polio (IPV/OPV) 2000-09-22 Completed Universit y of 00:00:00 [facility] Pneumococcal 7 2000-09-22 Completed University of Conjugate, PCV7 00:00:00 [facility] ical (Prevnar7) Branch Polio (IPV/OPV) 2000-09-22 Completed Universit y of 00:00:00 [facility] Pneumococcal 7 2000-09-22 Completed University of Conjugate, PCV7 00:00:00 [facility] ical (Prevnar7) Branch Polio (IPV/OPV) 2000-09-22 Completed Universit y of 00:00:00 [facility] Polio (IPV/OPV) 2000-09-22 Completed [facility] y of 00:00:00 [facility] Pneumococcal 7 2000-09-22 Completed University of Conjugate, PCV7 00:00:00 [facility] ica (Prevnar7) Branch Polio (IPV/OPV) 2000-09-22 Completed Universit y of 00:00:00 [facility] Pneumococcal 7 2000-09-22 Completed University of Conjugate, PCV7 00:00:00 [facility] ical (Prevnar7) Branch Polio (IPV/OPV) 2000-09-22 Completed Universit y of 00:00:00 [facility] Hep B, Adol or Pedi 2000-05-25 Completed Unive [facility]ity of Dosage 00:00:00 [facility] DTAP 2000-05-25 Completed University of 00:00:00 [facility] HIB 4 Dose Schedule 2000-05-25 Completed [facility] of 00:00:00 [facility] Hep B, Adol or Pedi 2000-05-25 Completed [facility]ive [facility] of Dosage 00:00:00 [facility] DTAP 2000-05-25 Completed University of 00:00:00 [facility] HIB 4 Dose Schedule 2000-05-25 Completed [facility] 00:00:00 [place] [facility] Hep B, Adol or Pedi 2000-05-25 Completed [facility]ive [facility] of Dosage 00:00:00 [facility] DTAP 2000-05-25 Completed University of 00:00:00 [facility] HIB 4 Dose Schedule 2000-05-25 Completed [facility] of 00:00:00 [facility] Hep B, Adol or Pedi 2000-05-25 Completed [facility] of Dosage 00:00:00 [facility] DTAP 2000-05-25 Completed University of 00:00:00 [facility] HIB 4 Dose Schedule 2000-05-25 Completed [facility] 00:00:00 [facility] Hep B, Adol or Pedi 2000-05-25 Completed [facility]ive [facility] of Dosage 00:00:00 [facility] DTAP 2000-05-25 Completed University of 00:00:00 [facility] HIB 4 Dose Schedule 2000-05-25 Completed [facility] of 00:00:00 [facility] Hep B, Adol or Pedi 2000-05-25 Completed [facility] of Dosage 00:00:00 [facility] DTAP 2000-05-25 Completed [facility] of 00:00:00 [facility] HIB 4 Dose Schedule 2000-05-25 Completed [facility] of 00:00:00 [facility] Hep B, Adol or Pedi 2000-05-25 Completed [facility] of Dosage 00:00:00 [facility] DTAP 2000-05-25 Completed University of 00:00:00 [facility] HIB 4 Dose Schedule 2000-05-25 Completed [facility] 00:00:00 [facility] Hep B, Adol or Pedi 2000-05-25 Completed [facility] of Dosage 00:00:00 [facility] DTAP 2000-05-25 Completed University of 00:00:00 [facility] HIB 4 Dose Schedule 2000-05-25 Completed [facility] 00:00:00 [facility] Hep B, Adol or Pedi 2000-05-25 Completed [facility] of Dosage 00:00:00 [facility] DTAP 2000-05-25 Completed [facility] of 00:00:00 [facility] HIB 4 Dose Schedule 2000-05-25 Completed [facility] 00:00:00 [place] [facility] Hep B, Adol or Pedi 2000-05-25 Completed [facility] of Dosage 00:00:00 [facility] DTAP 2000-05-25 Completed [facility] of 00:00:00 [facility] HIB 4 Dose Schedule 2000-05-25 Completed [facility] of 00:00:00 [facility] Hep B, Adol or Pedi 2000-05-25 Completed [facility] of Dosage 00:00:00 [facility] DTAP 2000-05-25 Completed [facility] of 00:00:00 [facility] HIB 4 Dose Schedule 2000-05-25 Completed [facility] 00:00:00 [facility] Hep B, Adol or Pedi 2000-05-25 Completed [facility] of Dosage 00:00:00 [facility] DTAP 2000-05-25 Completed [facility] of 00:00:00 [facility] HIB 4 Dose Schedule 2000-05-25 Completed [facility] of 00:00:00 [facility] Hep B, Adol or Pedi 2000-05-25 Completed [facility] of Dosage 00:00:00 [facility] DTAP 2000-05-25 Completed [facility] of 00:00:00 [facility] HIB 4 Dose Schedule 2000-05-25 Completed [facility] of 00:00:00 [facility] Hep B, Adol or Pedi 2000-05-25 Completed [facility] of Dosage 00:00:00 [facility] DTAP 2000-05-25 Completed [facility] of 00:00:00 [facility] HIB 4 Dose Schedule 2000-05-25 Completed [facility] of 00:00:00 [facility] Hep B, Adol or Pedi 2000-05-25 Completed [facility] of Dosage 00:00:00 [facility] DTAP 2000-05-25 Completed [facility] of 00:00:00 [facility] HIB 4 Dose Schedule 2000-05-25 Completed [facility] of 00:00:00 [facility] Hep B, Adol or Pedi 2000-05-25 Completed [facility] of Dosage 00:00:00 [facility] DTAP 2000-05-25 Completed [facility] 00:00:00 [facility] HIB 4 Dose Schedule 2000-05-25 Completed [facility] of 00:00:00 [facility] Hep B, Adol or Pedi 2000-05-25 Completed [facility] of Dosage 00:00:00 [facility] DTAP 2000-05-25 Completed [facility] of 00:00:00 [facility] HIB 4 Dose Schedule 2000-05-25 Completed [facility] of 00:00:00 [facility] Hep B, Adol or Pedi 2000-05-25 Completed [facility] of Dosage 00:00:00 [facility] DTAP 2000-05-25 Completed [facility] of 00:00:00 [facility] HIB 4 Dose Schedule 2000-05-25 Completed [facility] of 00:00:00 [facility] Hep B, Adol or Pedi 2000-05-25 Completed [facility] of Dosage 00:00:00 [facility] DTAP 2000-05-25 Completed [facility] of 00:00:00 [facility] HIB 4 Dose Schedule 2000-05-25 Completed [facility] of 00:00:00 [facility] Hep B, Adol or Pedi 2000-05-25 Completed [facility] of Dosage 00:00:00 [facility] DTAP 2000-05-25 Completed University of 00:00:00 [facility] HIB 4 Dose Schedule 2000-05-25 Completed [facility] of 00:00:00 [facility] Hep B, Adol or Pedi 2000-05-25 Completed [facility] of Dosage 00:00:00 [facility] DTAP 2000-05-25 Completed [facility] of 00:00:00 [facility] HIB 4 Dose Schedule 2000-05-25 Completed [facility] of 00:00:00 [facility] Hep B, Adol or Pedi 2000-05-25 Completed [facility] of Dosage 00:00:00 [facility] DTAP 2000-05-25 Completed [facility] of 00:00:00 [facility] HIB 4 Dose Schedule 2000-05-25 Completed [facility] of 00:00:00 [facility] Hep B, Adol or Pedi 2000-05-25 Completed [facility] of Dosage 00:00:00 [facility] DTAP 2000-05-25 Completed [facility] of 00:00:00 [facility] HIB 4 Dose Schedule 2000-05-25 Completed [facility] of 00:00:00 [facility] Hep B, Adol or Pedi 2000-05-25 Completed [facility] of Dosage 00:00:00 [facility] DTAP 2000-05-25 Completed [facility] of 00:00:00 [facility] HIB 4 Dose Schedule 2000-05-25 Completed [facility] of 00:00:00 [facility] Hep B, Adol or Pedi 2000-05-25 Completed [facility] of Dosage 00:00:00 [facility] DTAP 2000-05-25 Completed [facility] 00:00:00 [facility] HIB 4 Dose Schedule 2000-05-25 Completed [facility] of 00:00:00 [facility] Hep B, Adol or Pedi 2000-05-25 Completed [facility] of Dosage 00:00:00 [facility] DTAP 2000-05-25 Completed [facility] of 00:00:00 [facility] HIB 4 Dose Schedule 2000-05-25 Completed [facility] of 00:00:00 [facility] Hep B, Adol or Pedi 2000-05-25 Completed [facility] of Dosage 00:00:00 [facility] DTAP 2000-05-25 Completed [facility] of 00:00:00 [facility] HIB 4 Dose Schedule 2000-05-25 Completed [facility] of 00:00:00 [facility] Hep B, Adol or Pedi 2000-05-25 Completed [facility] of Dosage 00:00:00 [facility] Hep B, Adol or Pedi 2000-05-25 Completed [facility] of Dosage 00:00:00 [facility] DTAP 2000-05-25 Completed [facility] of 00:00:00 [facility] HIB 4 Dose Schedule 2000-05-25 Completed [facility] of 00:00:00 [facility] Hep B, Adol or Pedi 2000-05-25 Completed [facility] of Dosage 00:00:00 [facility] DTAP 2000-05-25 Completed [facility] of 00:00:00 [facility] HIB 4 Dose Schedule 2000-05-25 Completed [facility] of 00:00:00 [facility] Hep B, Adol or Pedi 2000-05-25 Completed [facility] of Dosage 00:00:00 [facility] DTAP 2000-05-25 Completed [facility] of 00:00:00 [facility] HIB 4 Dose Schedule 2000-05-25 Completed [facility] of 00:00:00 [facility] DTAP 2000-05-25 Completed [facility] 00:00:00 [facility] Hep B, Adol or Pedi 2000-05-25 Completed [facility] of Dosage 00:00:00 [facility] DTAP 2000-05-25 Completed [facility] of 00:00:00 [facility] HIB 4 Dose Schedule 2000-05-25 Completed [facility] of 00:00:00 [facility] HIB 4 Dose Schedule 2000-05-25 Completed [facility] of 00:00:00 [facility] Hep B, Adol or Pedi 2000-05-25 Completed [facility] of Dosage 00:00:00 [facility] DTAP 2000-05-25 Completed [facility] of 00:00:00 [facility] HIB 4 Dose Schedule 2000-05-25 Completed [facility] of 00:00:00 [facility] Hep B, Adol or Pedi 2000-05-25 Completed [facility] of Dosage 00:00:00 [facility] DTAP 2000-05-25 Completed [facility] 00:00:00 [facility] HIB 4 Dose Schedule 2000-05-25 Completed [facility] of 00:00:00 [facility] Hep B, Adol or Pedi 2000-05-25 Completed [facility] of Dosage 00:00:00 [facility] DTAP 2000-05-25 Completed [facility] 00:00:00 [facility] HIB 4 Dose Schedule 2000-05-25 Completed [facility] of 00:00:00 [facility] Hep B, Adol or Pedi 2000-05-25 Completed [facility] of Dosage 00:00:00 [facility] DTAP 2000-05-25 Completed [facility] 00:00:00 [facility] HIB 4 Dose Schedule 2000-05-25 Completed [facility] of 00:00:00 [facility] DTAP 2000-03-23 Completed [facility] 00:00:00 [facility] HIB 4 Dose Schedule 2000-03-23 Completed [facility] 00:00:00 [facility] Polio (IPV/OPV) 2000-03-23 Completed [facility] 00:00:00 [facility] DTAP 2000-03-23 Completed [facility] 00:00:00 [facility] HIB 4 Dose Schedule 2000-03-23 Completed [facility] 00:00:00 [facility] Polio (IPV/OPV) 2000-03-23 Completed [facility] 00:00:00 [facility] DTAP 2000-03-23 Completed [facility] 00:00:00 [facility] HIB 4 Dose Schedule 2000-03-23 Completed [facility] 00:00:00 [facility] Polio (IPV/OPV) 2000-03-23 Completed [facility] 00:00:00 [facility] DTAP 2000-03-23 Completed [facility] 00:00:00 [facility] HIB 4 Dose Schedule 2000-03-23 Completed [facility] 00:00:00 [facility] Polio (IPV/OPV) 2000-03-23 Completed [facility] 00:00:00 [facility] DTAP 2000-03-23 Completed [facility] 00:00:00 [facility] HIB 4 Dose Schedule 2000-03-23 Completed [facility] 00:00:00 [facility] Polio (IPV/OPV) 2000-03-23 Completed [facility] 00:00:00 [facility] DTAP 2000-03-23 Completed [facility] 00:00:00 [facility] HIB 4 Dose Schedule 2000-03-23 Completed [facility] 00:00:00 [facility] Polio (IPV/OPV) 2000-03-23 Completed [facility] 00:00:00 [facility] DTAP 2000-03-23 Completed [facility] 00:00:00 [facility] HIB 4 Dose Schedule 2000-03-23 Completed [facility] 00:00:00 [facility] Polio (IPV/OPV) 2000-03-23 Completed [facility] 00:00:00 [facility] DTAP 2000-03-23 Completed [facility] 00:00:00 [facility] HIB 4 Dose Schedule 2000-03-23 Completed [facility] 00:00:00 [facility] Polio (IPV/OPV) 2000-03-23 Completed [facility] 00:00:00 [facility] DTAP 2000-03-23 Completed [facility] 00:00:00 [facility] HIB 4 Dose Schedule 2000-03-23 Completed [facility] 00:00:00 [facility] Polio (IPV/OPV) 2000-03-23 Completed [facility] 00:00:00 [facility] DTAP 2000-03-23 Completed [facility] 00:00:00 [facility] HIB 4 Dose Schedule 2000-03-23 Completed [facility] 00:00:00 [facility] Polio (IPV/OPV) 2000-03-23 Completed [facility] 00:00:00 [facility] DTAP 2000-03-23 Completed [facility] 00:00:00 [facility] HIB 4 Dose Schedule 2000-03-23 Completed [facility] 00:00:00 [facility] Polio (IPV/OPV) 2000-03-23 Completed [facility] 00:00:00 [facility] DTAP 2000-03-23 Completed [facility] 00:00:00 [facility] HIB 4 Dose Schedule 2000-03-23 Completed [facility] 00:00:00 [facility] Polio (IPV/OPV) 2000-03-23 Completed [facility] 00:00:00 [facility] DTAP 2000-03-23 Completed [facility] 00:00:00 [facility] HIB 4 Dose Schedule 2000-03-23 Completed [facility] 00:00:00 [facility] Polio (IPV/OPV) 2000-03-23 Completed [facility] 00:00:00 [facility] DTAP 2000-03-23 Completed [facility] 00:00:00 [facility] HIB 4 Dose Schedule 2000-03-23 Completed [facility] 00:00:00 [facility] Polio (IPV/OPV) 2000-03-23 Completed [facility] 00:00:00 [facility] DTAP 2000-03-23 Completed [facility] 00:00:00 [facility] HIB 4 Dose Schedule 2000-03-23 Completed [facility] 00:00:00 [facility] Polio (IPV/OPV) 2000-03-23 Completed [facility] 00:00:00 [facility] DTAP 2000-03-23 Completed [facility] 00:00:00 [facility] HIB 4 Dose Schedule 2000-03-23 Completed [facility] 00:00:00 [facility] Polio (IPV/OPV) 2000-03-23 Completed [facility] 00:00:00 [facility] DTAP 2000-03-23 Completed [facility] 00:00:00 [facility] HIB 4 Dose Schedule 2000-03-23 Completed [facility] 00:00:00 [facility] Polio (IPV/OPV) 2000-03-23 Completed [facility] 00:00:00 [facility] DTAP 2000-03-23 Completed [facility] 00:00:00 [facility] HIB 4 Dose Schedule 2000-03-23 Completed [facility] 00:00:00 [facility] Polio (IPV/OPV) 2000-03-23 Completed [facility] 00:00:00 [facility] DTAP 2000-03-23 Completed [facility] 00:00:00 [facility] HIB 4 Dose Schedule 2000-03-23 Completed [facility] 00:00:00 [facility] Polio (IPV/OPV) 2000-03-23 Completed [facility] 00:00:00 [facility] DTAP 2000-03-23 Completed [facility] 00:00:00 [facility] HIB 4 Dose Schedule 2000-03-23 Completed [facility] 00:00:00 [facility] Polio (IPV/OPV) 2000-03-23 Completed [facility] 00:00:00 [facility] DTAP 2000-03-23 Completed [facility] 00:00:00 [facility] HIB 4 Dose Schedule 2000-03-23 Completed [facility] 00:00:00 [facility] Polio (IPV/OPV) 2000-03-23 Completed [facility] 00:00:00 [facility] DTAP 2000-03-23 Completed [facility] 00:00:00 [facility] HIB 4 Dose Schedule 2000-03-23 Completed [facility] 00:00:00 [facility] Polio (IPV/OPV) 2000-03-23 Completed [facility] 00:00:00 [facility] DTAP 2000-03-23 Completed [facility] 00:00:00 [facility] HIB 4 Dose Schedule 2000-03-23 Completed [facility] 00:00:00 [facility] Polio (IPV/OPV) 2000-03-23 Completed [facility] 00:00:00 [facility] DTAP 2000-03-23 Completed [facility] 00:00:00 [facility] HIB 4 Dose Schedule 2000-03-23 Completed [facility] 00:00:00 [facility] Polio (IPV/OPV) 2000-03-23 Completed [facility] 00:00:00 [facility] DTAP 2000-03-23 Completed [facility] 00:00:00 [facility] HIB 4 Dose Schedule 2000-03-23 Completed [facility] 00:00:00 [facility] Polio (IPV/OPV) 2000-03-23 Completed [facility] 00:00:00 [facility] DTAP 2000-03-23 Completed [facility] 00:00:00 [facility] HIB 4 Dose Schedule 2000-03-23 Completed [facility] 00:00:00 [facility] Polio (IPV/OPV) 2000-03-23 Completed [facility] 00:00:00 [facility] DTAP 2000-03-23 Completed [facility] 00:00:00 [facility] HIB 4 Dose Schedule 2000-03-23 Completed [facility] 00:00:00 [facility] Polio (IPV/OPV) 2000-03-23 Completed [facility] 00:00:00 [facility] DTAP 2000-03-23 Completed [facility] 00:00:00 [facility] HIB 4 Dose Schedule 2000-03-23 Completed [facility] 00:00:00 [facility] Polio (IPV/OPV) 2000-03-23 Completed [facility] 00:00:00 [facility] DTAP 2000-03-23 Completed [facility] 00:00:00 [facility] HIB 4 Dose Schedule 2000-03-23 Completed [facility] 00:00:00 [facility] Polio (IPV/OPV) 2000-03-23 Completed [facility] 00:00:00 [facility] DTAP 2000-03-23 Completed [facility] 00:00:00 [facility] DTAP 2000-03-23 Completed [facility] 00:00:00 [facility] HIB 4 Dose Schedule 2000-03-23 Completed [facility] 00:00:00 [facility] Polio (IPV/OPV) 2000-03-23 Completed [facility] 00:00:00 [facility] DTAP 2000-03-23 Completed [facility] 00:00:00 [facility] HIB 4 Dose Schedule 2000-03-23 Completed [facility] 00:00:00 [facility] Polio (IPV/OPV) 2000-03-23 Completed [facility] 00:00:00 [facility] HIB 4 Dose Schedule 2000-03-23 Completed [facility] 00:00:00 [facility] DTAP 2000-03-23 Completed [facility] 00:00:00 [facility] HIB 4 Dose Schedule 2000-03-23 Completed [facility] 00:00:00 [facility] Polio (IPV/OPV) 2000-03-23 Completed [facility] 00:00:00 [facility] Polio (IPV/OPV) 2000-03-23 Completed [facility] 00:00:00 [facility] DTAP 2000-03-23 Completed [facility] 00:00:00 [facility] HIB 4 Dose Schedule 2000-03-23 Completed [facility] 00:00:00 [facility] Polio (IPV/OPV) 2000-03-23 Completed [facility] 00:00:00 [facility] DTAP 2000-03-23 Completed [facility] 00:00:00 [facility] HIB 4 Dose Schedule 2000-03-23 Completed [facility] 00:00:00 [facility] Polio (IPV/OPV) 2000-03-23 Completed [facility] 00:00:00 [facility] DTAP 2000-03-23 Completed [facility] 00:00:00 [facility] HIB 4 Dose Schedule 2000-03-23 Completed [facility] 00:00:00 [facility] Polio (IPV/OPV) 2000-03-23 Completed [facility] 00:00:00 [facility] DTAP 2000-01-15 Completed [facility] 00:00:00 [facility] HIB 4 Dose Schedule 2000-01-15 Completed [facility] 00:00:00 [facility] Polio (IPV/OPV) 2000-01-15 Completed [facility] 00:00:00 [facility] Polio (IPV/OPV) 2000-01-15 Completed [facility] 00:00:00 [facility] Hep B, Adol or Pedi 2000-01-15 Completed [facility] Dosage 00:00:00 [facility] DTAP 2000-01-15 Completed [facility] 00:00:00 [facility] HIB 4 Dose Schedule 2000-01-15 Completed [facility] 00:00:00 [facility] Polio (IPV/OPV) 2000-01-15 Completed [facility] 00:00:00 [facility] Hep B, Adol or Pedi 2000-01-15 Completed [facility] Dosage 00:00:00 [facility] DTAP 2000-01-15 Completed [facility] 00:00:00 [facility] HIB 4 Dose Schedule 2000-01-15 Completed [facility] 00:00:00 [facility] Polio (IPV/OPV) 2000-01-15 Completed [facility] 00:00:00 [facility] Hep B, Adol or Pedi 2000-01-15 Completed [facility] Dosage 00:00:00 [facility] DTAP 2000-01-15 Completed [facility] 00:00:00 [facility] HIB 4 Dose Schedule 2000-01-15 Completed [facility] 00:00:00 [facility] Polio (IPV/OPV) 2000-01-15 Completed [facility] 00:00:00 [facility] Hep B, Adol or Pedi 2000-01-15 Completed [facility] Dosage 00:00:00 [facility] DTAP 2000-01-15 Completed [facility] 00:00:00 [facility] HIB 4 Dose Schedule 2000-01-15 Completed [facility] 00:00:00 [facility] Polio (IPV/OPV) 2000-01-15 Completed [facility] 00:00:00 [facility] Hep B, Adol or Pedi 2000-01-15 Completed [facility] Dosage 00:00:00 [facility] DTAP 2000-01-15 Completed [facility] 00:00:00 [facility] HIB 4 Dose Schedule 2000-01-15 Completed [facility] 00:00:00 [facility] Polio (IPV/OPV) 2000-01-15 Completed [facility] 00:00:00 [facility] Hep B, Adol or Pedi 2000-01-15 Completed [facility] Dosage 00:00:00 [facility] DTAP 2000-01-15 Completed [facility] 00:00:00 [facility] HIB 4 Dose Schedule 2000-01-15 Completed [facility] 00:00:00 [facility] Polio (IPV/OPV) 2000-01-15 Completed [facility] 00:00:00 [facility] Hep B, Adol or Pedi 2000-01-15 Completed [facility] Dosage 00:00:00 [facility] DTAP 2000-01-15 Completed [facility] 00:00:00 [facility] HIB 4 Dose Schedule 2000-01-15 Completed [facility] 00:00:00 [facility] Polio (IPV/OPV) 2000-01-15 Completed [facility] 00:00:00 [facility] Hep B, Adol or Pedi 2000-01-15 Completed [facility] Dosage 00:00:00 [facility] DTAP 2000-01-15 Completed [facility] 00:00:00 [facility] HIB 4 Dose Schedule 2000-01-15 Completed [facility] 00:00:00 [facility] Polio (IPV/OPV) 2000-01-15 Completed [facility] 00:00:00 [facility] Hep B, Adol or Pedi 2000-01-15 Completed [facility] Dosage 00:00:00 [facility] DTAP 2000-01-15 Completed [facility] 00:00:00 [facility] HIB 4 Dose Schedule 2000-01-15 Completed [facility] 00:00:00 [facility] Polio (IPV/OPV) 2000-01-15 Completed [facility] 00:00:00 [facility] Hep B, Adol or Pedi 2000-01-15 Completed [facility] Dosage 00:00:00 [facility] DTAP 2000-01-15 Completed [facility] 00:00:00 [facility] HIB 4 Dose Schedule 2000-01-15 Completed [facility] 00:00:00 [facility] Polio (IPV/OPV) 2000-01-15 Completed [facility] 00:00:00 [facility] Hep B, Adol or Pedi 2000-01-15 Completed [facility] Dosage 00:00:00 [facility] DTAP 2000-01-15 Completed [facility] 00:00:00 [facility] HIB 4 Dose Schedule 2000-01-15 Completed [facility] 00:00:00 [facility] Polio (IPV/OPV) 2000-01-15 Completed [facility] 00:00:00 [facility] Hep B, Adol or Pedi 2000-01-15 Completed [facility] Dosage 00:00:00 [facility] DTAP 2000-01-15 Completed [facility] 00:00:00 [facility] HIB 4 Dose Schedule 2000-01-15 Completed [facility] 00:00:00 [facility] Polio (IPV/OPV) 2000-01-15 Completed [facility] 00:00:00 [facility] Hep B, Adol or Pedi 2000-01-15 Completed [facility] Dosage 00:00:00 [facility] DTAP 2000-01-15 Completed [facility] 00:00:00 [facility] HIB 4 Dose Schedule 2000-01-15 Completed [facility] 00:00:00 [facility] Polio (IPV/OPV) 2000-01-15 Completed [facility] 00:00:00 [facility] Hep B, Adol or Pedi 2000-01-15 Completed [facility] Dosage 00:00:00 [facility] DTAP 2000-01-15 Completed [facility] 00:00:00 [facility] HIB 4 Dose Schedule 2000-01-15 Completed [facility] 00:00:00 [facility] Polio (IPV/OPV) 2000-01-15 Completed [facility] 00:00:00 [facility] Hep B, Adol or Pedi 2000-01-15 Completed [facility] Dosage 00:00:00 [facility] DTAP 2000-01-15 Completed [facility] 00:00:00 [facility] HIB 4 Dose Schedule 2000-01-15 Completed [facility] 00:00:00 [facility] Polio (IPV/OPV) 2000-01-15 Completed [facility] 00:00:00 [facility] Hep B, Adol or Pedi 2000-01-15 Completed [facility] Dosage 00:00:00 [facility] DTAP 2000-01-15 Completed [facility] 00:00:00 [facility] HIB 4 Dose Schedule 2000-01-15 Completed [facility] 00:00:00 [facility] Polio (IPV/OPV) 2000-01-15 Completed [facility] 00:00:00 [facility] Hep B, Adol or Pedi 2000-01-15 Completed [facility] Dosage 00:00:00 [facility] DTAP 2000-01-15 Completed [facility] 00:00:00 [facility] HIB 4 Dose Schedule 2000-01-15 Completed [facility] 00:00:00 [facility] Polio (IPV/OPV) 2000-01-15 Completed [facility] 00:00:00 [facility] Hep B, Adol or Pedi 2000-01-15 Completed [facility] Dosage 00:00:00 [facility] DTAP 2000-01-15 Completed [facility] 00:00:00 [facility] HIB 4 Dose Schedule 2000-01-15 Completed [facility] 00:00:00 [facility] Polio (IPV/OPV) 2000-01-15 Completed [facility] 00:00:00 [facility] Hep B, Adol or Pedi 2000-01-15 Completed [facility] Dosage 00:00:00 [facility] DTAP 2000-01-15 Completed [facility] 00:00:00 [facility] HIB 4 Dose Schedule 2000-01-15 Completed [facility] 00:00:00 [facility] Polio (IPV/OPV) 2000-01-15 Completed [facility] 00:00:00 [facility] Hep B, Adol or Pedi 2000-01-15 Completed [facility] Dosage 00:00:00 [facility] DTAP 2000-01-15 Completed [facility] 00:00:00 [facility] HIB 4 Dose Schedule 2000-01-15 Completed [facility] 00:00:00 [facility] Polio (IPV/OPV) 2000-01-15 Completed [facility] 00:00:00 [facility] Hep B, Adol or Pedi 2000-01-15 Completed [facility] Dosage 00:00:00 [facility] DTAP 2000-01-15 Completed [facility] 00:00:00 [facility] HIB 4 Dose Schedule 2000-01-15 Completed [facility] 00:00:00 [facility] Polio (IPV/OPV) 2000-01-15 Completed [facility] 00:00:00 [facility] Hep B, Adol or Pedi 2000-01-15 Completed [facility] Dosage 00:00:00 [facility] DTAP 2000-01-15 Completed [facility] 00:00:00 [facility] HIB 4 Dose Schedule 2000-01-15 Completed [facility] 00:00:00 [facility] Polio (IPV/OPV) 2000-01-15 Completed [facility] 00:00:00 [facility] Hep B, Adol or Pedi 2000-01-15 Completed [facility] Dosage 00:00:00 [facility] DTAP 2000-01-15 Completed [facility] 00:00:00 [facility] HIB 4 Dose Schedule 2000-01-15 Completed [facility] 00:00:00 [facility] Polio (IPV/OPV) 2000-01-15 Completed [facility] 00:00:00 [facility] Hep B, Adol or Pedi 2000-01-15 Completed [facility] Dosage 00:00:00 [facility] DTAP 2000-01-15 Completed [facility] 00:00:00 [facility] HIB 4 Dose Schedule 2000-01-15 Completed [facility] 00:00:00 [facility] Polio (IPV/OPV) 2000-01-15 Completed [facility] 00:00:00 [facility] Hep B, Adol or Pedi 2000-01-15 Completed [facility] Dosage 00:00:00 [facility] DTAP 2000-01-15 Completed [facility] 00:00:00 [facility] HIB 4 Dose Schedule 2000-01-15 Completed [facility] 00:00:00 [facility] Polio (IPV/OPV) 2000-01-15 Completed [facility] 00:00:00 [facility] Hep B, Adol or Pedi 2000-01-15 Completed [facility] Dosage 00:00:00 [facility] DTAP 2000-01-15 Completed [facility] 00:00:00 [facility] HIB 4 Dose Schedule 2000-01-15 Completed [facility] 00:00:00 [facility] Polio (IPV/OPV) 2000-01-15 Completed [facility] 00:00:00 [facility] Hep B, Adol or Pedi 2000-01-15 Completed [facility] Dosage 00:00:00 [facility] DTAP 2000-01-15 Completed [facility] 00:00:00 [facility] HIB 4 Dose Schedule 2000-01-15 Completed [facility] 00:00:00 [facility] Polio (IPV/OPV) 2000-01-15 Completed [facility] 00:00:00 [facility] Hep B, Adol or Pedi 2000-01-15 Completed [facility] Dosage 00:00:00 [facility] DTAP 2000-01-15 Completed [facility] 00:00:00 [facility] HIB 4 Dose Schedule 2000-01-15 Completed [facility] 00:00:00 [facility] Polio (IPV/OPV) 2000-01-15 Completed [facility] 00:00:00 [facility] Hep B, Adol or Pedi 2000-01-15 Completed [facility] Dosage 00:00:00 [facility] DTAP 2000-01-15 Completed [facility] 00:00:00 [facility] HIB 4 Dose Schedule 2000-01-15 Completed [facility] 00:00:00 [facility] Polio (IPV/OPV) 2000-01-15 Completed [facility] 00:00:00 [facility] Hep B, Adol or Pedi 2000-01-15 Completed [facility] Dosage 00:00:00 [facility] DTAP 2000-01-15 Completed [facility] 00:00:00 [facility] HIB 4 Dose Schedule 2000-01-15 Completed [facility] 00:00:00 [facility] Polio (IPV/OPV) 2000-01-15 Completed [facility] 00:00:00 [facility] Hep B, Adol or Pedi 2000-01-15 Completed [facility] Dosage 00:00:00 [facility] Hep B, Adol or Pedi 2000-01-15 Completed [facility] Dosage 00:00:00 [facility] DTAP 2000-01-15 Completed [facility] 00:00:00 [facility] HIB 4 Dose Schedule 2000-01-15 Completed [facility] 00:00:00 [facility] Polio (IPV/OPV) 2000-01-15 Completed [facility] 00:00:00 [facility] Hep B, Adol or Pedi 2000-01-15 Completed [facility] Dosage 00:00:00 [facility] DTAP 2000-01-15 Completed [facility] 00:00:00 [facility] HIB 4 Dose Schedule 2000-01-15 Completed [facility] 00:00:00 [facility] Polio (IPV/OPV) 2000-01-15 Completed [facility] 00:00:00 [facility] DTAP 2000-01-15 Completed [facility] 00:00:00 [facility] Hep B, Adol or Pedi 2000-01-15 Completed [facility] Dosage 00:00:00 [facility] DTAP 2000-01-15 Completed [facility] 00:00:00 [facility] HIB 4 Dose Schedule 2000-01-15 Completed [facility] 00:00:00 [facility] Polio (IPV/OPV) 2000-01-15 Completed [facility] 00:00:00 [facility] Hep B, Adol or Pedi 2000-01-15 Completed [facility] Dosage 00:00:00 [facility] DTAP 2000-01-15 Completed [facility] 00:00:00 [facility] HIB 4 Dose Schedule 2000-01-15 Completed [facility] 00:00:00 [facility] HIB 4 Dose Schedule 2000-01-15 Completed [facility] 00:00:00 [facility] Polio (IPV/OPV) 2000-01-15 Completed [facility] 00:00:00 [facility] Hep B, Adol or Pedi 2000-01-15 Completed [facility] Dosage 00:00:00 [facility] Hep B, Adol or Pedi 1999 Completed [facility] Dosage 00:00:00 [facility] Hep B, Adol or Pedi 1999 Completed [facility] Dosage 00:00:00 [facility] Hep B, Adol or Pedi 1999 Completed [facility] Dosage 00:00:00 [facility] Hep B, Adol or Pedi 1999 Completed [facility] Dosage 00:00:00 [facility] Hep B, Adol or Pedi 1999 Completed [facility] Dosage 00:00:00 [facility] Hep B, Adol or Pedi 1999 Completed [facility] Dosage 00:00:00 [facility] Hep B, Adol or Pedi 1999 Completed [facility] Dosage 00:00:00 [facility] Hep B, Adol or Pedi 1999 Completed [facility] Dosage 00:00:00 [facility] Hep B, Adol or Pedi 1999 Completed [facility] Dosage 00:00:00 [facility] Hep B, Adol or Pedi 1999 Completed [facility] Dosage 00:00:00 [facility] Hep B, Adol or Pedi 1999 Completed [facility] Dosage 00:00:00 [facility] Hep B, Adol or Pedi 1999 Completed [facility] Dosage 00:00:00 [facility] Hep B, Adol or Pedi 1999 Completed [facility] Dosage 00:00:00 [facility] Hep B, Adol or Pedi 1999 Completed [facility] Dosage 00:00:00 [facility] Hep B, Adol or Pedi 1999 Completed [facility] Dosage 00:00:00 [facility] Hep B, Adol or Pedi 1999 Completed [facility] Dosage 00:00:00 [facility] Hep B, Adol or Pedi 1999 Completed [facility] Dosage 00:00:00 [facility] Hep B, Adol or Pedi 1999 Completed [facility] Dosage 00:00:00 [facility] Hep B, Adol or Pedi 1999 Completed [facility] Dosage 00:00:00 [facility] Hep B, Adol or Pedi 1999 Completed [facility] Dosage 00:00:00 [facility] Hep B, Adol or Pedi 1999 Completed [facility] Dosage 00:00:00 [facility] Hep B, Adol or Pedi 1999 Completed [facility] Dosage 00:00:00 [facility] Hep B, Adol or Pedi 1999 Completed [facility] Dosage 00:00:00 [facility] Hep B, Adol or Pedi 1999 Completed [facility] Dosage 00:00:00 [facility] Hep B, Adol or Pedi 1999 Completed [facility] Dosage 00:00:00 [facility] Hep B, Adol or Pedi 1999 Completed [facility] Dosage 00:00:00 [facility] Hep B, Adol or Pedi 1999 Completed [facility] Dosage 00:00:00 [facility] Hep B, Adol or Pedi 1999 Completed [facility] Dosage 00:00:00 [facility] Hep B, Adol or Pedi 1999 Completed [facility] Dosage 00:00:00 [facility] Hep B, Adol or Pedi 1999 Completed [facility] Dosage 00:00:00 [facility] Hep B, Adol or Pedi 1999 Completed [facility] Dosage 00:00:00 [facility] Hep B, Adol or Pedi 1999 Completed [facility] Dosage 00:00:00 [facility] Hep B, Adol or Pedi 1999 Completed [facility] Dosage 00:00:00 [facility] Hep B, Adol or Pedi 1999 Completed [facility] Dosage 00:00:00 [facility] Hep B, Adol or Pedi 1999 Completed [facility] Dosage 00:00:00 [facility] Hep B, Adol or Pedi 1999 Completed [facility] Dosage 00:00:00 [facility] Vital Signs Vital Name Observation Time Observation Value Comments Source Respiratory rate 2021-03-14 14:07:00 20 /min [facility] [facility] Body height 2021-03-14 14:07:00 139.7 cm [facility] Body weight 2021-03-14 14:07:00 33.702 kg [facility] BMI 2021-03-14 14:07:00 17.27 kg/m2 [facility] Body temperature 2020-11-11 16:15:00 36.67 [facility] Body height 2020-11-11 16:15:00 139.7 cm [facility] Body weight 2020-11-11 16:15:00 31.752 kg [facility] BMI 2020-11-11 16:15:00 16.27 kg/m2 [facility] Body temperature 2020-03-28 20:13:00 36.83 [facility] Body height 2020-03-28 20:13:00 139.7 cm [facility] Body weight 2020-03-28 20:13:00 30.482 kg [facility] BMI 2020-03-28 20:13:00 15.62 kg/m2 [facility] Body weight 2020-03-08 13:12:00 31.298 kg [facility] Body temperature 2019-08-11 16:40:00 36.22 [facility] Respiratory rate 2019-08-11 16:40:00 20 /min [facility] Body height 2019-08-11 16:40:00 137 cm [facility] Body weight 2019-08-11 16:40:00 31.9 kg [facility] BMI 2019-08-11 16:40:00 17.00 kg/m2 [facility] Procedures Procedure Date / Time Performing Clinician Source Performed PHYSICIAN ORDERS 2021-04-22 05:01:00 Doctor Misty, [facility] Name [facility] [place] DME/SUPPLY JUSTIFICATION 2020-05-24 05:01:00 Doctor Misty, [facility] [place] CONSENT/REFUSAL FOR 2019-08-11 16:25:03 Doctor Misty, [facility] DIAGNOSIS AND TREATMENT [facility] [place] NO SHOW OR MISSED 2019-04-10 14:38:08 Doctor Misty, [facility] APPOINTMENT POLICY [place] [facility] h ACKNOWLEDGEMENT Encounters Start End Encounter Admission Attending Care Care Encounter Source Date/Time Date/Time Type Type Clinicians Facility Department ID 2021-05-29 2021-05-29 [facility] 1.2.840.114 [id number] Univers 00:00:00 00:00:00 Libboo 350.1.13.10 ity of [place] 4.2.7.2.686 Danielito as GUILLERMO?BLEA [phone] Mo nikolaiwy ARASELI [address] [place] [address] MEDICAL OFFICE BUILDING 2021-05-15 2021-05-15 Refkendell [facility] 1.2.840.114 [id number] Univers 00:00:00 00:00:00 [place] 350.1.13.10 [place] [phone] Mo nikolaiwy simi [address] [place] [address] Building 2021-05-09 2021-05-09 [facility] 1.2.840.114 [id number] Univers 00:00:00 00:00:00 [employer] [employer] [facility] 350.1.13.10 ity of [place] 4.2.7.2.686 Danielito as Professio [phone] Mo steven belcher [address] [place] [address] Office [facility] One 2021-04-22 2021-04-22 Orders Doctor JM 1.2.840.114 [id number] Univers 00:00:00 00:00:00 Only Unassigned, TANO 350.1.13.10 ity of [place] [facility] 4.2.7.2.686 Daniel[place] as [phone] [address] 2021-04-02 2021-04-02 Telephone Chan [facility] 1.2.840.114 [id number] Univers 00:00:00 00:00:00 [facility] 350.1.13.10 ity of [place] 4.2.7.2.686 Danielito as Guillermo?Blea [phone] Mo nikolaiwy araseli [address] [place] [address] Office [facility] 2021-03-14 2021-03-14 Office Chan [facility] 1.2.840.114 [id number] [facility] Univers 08:54:34 09:47:47 Visit [facility] 350.1.13.10 ity of [place] 4.2.7.2.686 Danielito as Guillermo?Blea [phone] Mo nikolaiwy osmani[address] Office [facility] 2021-03-14 2021-03-14 Outpatient [facility] [id number] Univers 09:20:00 09:20:00 [facility]UT[facility] GILES [id number] [facility] 2021-03-14 2021-03-14 Outpatient [facility] [id number] Univers 09:20:00 09:20:00 [facility] 2020-11-20 2020-11-20 Refill Chun [facility] 1.2.840.114 [id number] [facility] Univers 00:00:00 00:00:00 Wondiful A Health 350.1.13.10 ity of [place] 4.2.7.2.686 Danielito as Professio [phone] [facility] simi [address] [place] [address] Office [facility] 2020-11-12 2020-11-12 Refkendell [facility] 1.2.840.114 [id number] Univers 00:00:00 00:00:00 [place] 350.1.13.10 [place] [phone] [facility] 092 [facility] 2020-11-11 2020-11-11 Office [facility] 1.2.840.114 [id number] Univers 10:26:57 11:44:56 Visit [facility] 350.1.13.10 ity of [place] 4.2.7.2.686 [place] as Professio [phone] [facility] 044 [place] Office [facility] One 2020-11-11 2020-11-11 Outpatient [facility] [id number] Univers 11:15:00 11:15:00 WONDIFUL [id number] ity o f [facility] 2020-11-11 2020-11-11 Outpatient R CHUN [facility] [id number] Univers 11:15:00 11:15:00 WONDIFUL ity o f [facility] 2020-08-24 2020-08-24 [facility] 1.2.840.114 [id number] Univers 00:00:00 00:00:00 [place] 350.1.13.10 [place] [phone] [address] 2020-08-14 2020-08-14 [facility] 1.2.840.114 [id number] Univers 00:00:00 00:00:00 [place] 350.1.13.10 [place] [phone] [address] 2020-06-06 2020-06-06 Telephone [facility] 1.2.840.114 [id number] Univers 00:00:00 00:00:00 [facility] 350.1.13.10 ity of [place] 4.2.7.2.686 [place] Professio [phone] Mo steven [address] 2020-05-27 2020-05-[address] [place] [facility] 1.2.840.114 [id number] Univers 00:00:00 00:00:00 [facility] 350.1.13.10 ity of [place] 4.2.7.2.686 [place] Professio [phone] [address] 2020-05-24 2020-05-24 Orders Doctor JM 1.2.840.114 [id number] Univers 00:00:00 00:00:00 Only Unassigned, TANO 350.1.13.10 it[place] of [place] [facility] 4.2.7.2.686 [place] as [phone] [address] 2020-05-20 2020-05-20 Telephone Chun [facility] 1.2.840.114 [id number] Univers 00:00:00 00:00:00 [facility] 350.1.13.10 ity of [place] 4.2.7.2.686 [place] Professio [phone] [address] 2020-04-17 2020-04-17 Case Chun [facility] 1.2.840.114 [id number] Univers 00:00:00 00:00:00 Management Wondiful A [place] 350.1.13.10 [place] [phone] [address] 2020-04-12 2020-04-12 Outpatient R [facility] [id number] Univers 11:00:00 11:00:00 [id number] ity of [facility] 2020-04-12 2020-04-12 Outpatient R CHUN [facility] [id number] Univers 11:00:00 11:00:00 WONDIFUL ity o f [facility] 2020-04-12 2020-04-12 [employer] Manager Lab, Adc Fam Pob I [facility] 1.2. 840.114 [id number] Univers 10:39:38 10:54:38 Visit Ayleen Mccoll[facility] 350.1.13.1 0 ity of [place] 4.2.7.2.686 [place] as Professio [phone] [facility] 044 [place] Office [facility] One 2020-03-30 2020-03-30 Case Chun [facility] 1.2.840.114 [id number] Univers 00:00:00 00:00:00 Management Wondiful A [place] 350.1.13.10 [place] [phone] [facility] 044 [facility] 2020-03-28 2020-03-28 [employer] Manager 2, Adc Lab [facility] 1.2.840.114 [id number] Univers 15:48:39 16:03:39 Visit Ayleen Mccollum [place] 350.1.13. 10 [place] [phone] [facility] 353 [facility] 2020-03-28 2020-03-28 Office Chun [facility] 1.2.840.114 [id number] Univers 14:58:19 15:48:25 Visit Wondiful A [place] 350.1.13.10 [place] [phone] [facility] 044 [facility] 2020-03-28 2020-03-28 Outpatient R [facility] [id number] Q-20 Univers 15:30:00 15:30:00 WONDIFUL [id number] ity o f [facility] 2020-03-28 2020-03-28 Outpatient R [facility] [id number] Univers 15:30:00 15:30:00 WONDIFUL ity o f [facility] 2020-03-21 2020-03-21 Telephone FLAKO Giles 1.2.840.114 [id number] Univers 00:00:00 00:00:00 [facility] 350.1.13.10 ity of [place] [phone] [address] 2020-03-08 2020-03-08 Office Chan, [facility] 1.2.840.114 [id number] Univers 07:58:30 08:51:33 Visit [place] 350.1.13.10 [place] [phone] Mo dical [facility] 092 [facility] 2020-03-08 2020-03-08 Outpatient Hugo GILES DUTCH [facility] [id number] Univers 08:00:00 08:00:00 DUTCH GILES ity [facility] 2020-03-08 2020-03-08 Outpatient R CHAN, DUTCH [facility] [id number] Univers 08:00:00 08:00:00 DUTCH GILES [id number] ity [facility] 2020-02-22 2020-02-22 [facility] [id number] Univers 00:00:00 00:00:00 Garima J SPECIALTY 350.1.13.10 it[place] of [place] [phone] [address] 2019-12-07 2019-12-07 Telephone [facility] [id number] Univers 00:00:00 00:00:00 Garima J SPECIALTY 350.1.13.10 [place] [phone] [address] 2019-12-06 2019-12-06 Telephone [facility] [id number] Univers 00:00:00 00:00:00 Garima J SPECIALTY 350.1.13.10 [place] [phone] [address] 2019-08-11 2019-08-11 Office [facility] 1.2.840.114 [id number] Univers 10:25:19 10:55:19 Visit Garima J SPECIALTY 350.1.13.10 it[place] of [place] [phone] [address] 2019-08-11 2019-08-11 Orders Doctor JM 1.2.840.114 [id number] Univers 00:00:00 00:00:00 Only Unassigned, TANO 350.1.13.10 [facility] [facility] [place] [facility] 4.2.7.2.686 Danielito as [phone] [address] 2019-04-10 2019-04-10 Orders Doctor JM 1.2.840.114 [id number] 00:00:00 00:00:00 Only Unassigned, TANO 350.1.13.10 [facility] [place] [facility] 4.2.7.2.686 Danielito as [phone] [address] 2019-02-27 2019-02-27 Telephone [facility] [id number] 00:00:00 00:00:00 Garima J SPECIALTY 350.1.13.10 [place] 4.2.7.2.686 [place] [id number] 168 2019-02-27 2019-02-27 Telephone [facility] [id number] Univers 00:00:00 00:00:00 Garima J SPECIALTY 350.1.13.10 ity of [place] 4.2.7.2.686 [facility] [phone] [address] Results Test Description Test Time Test Comments Results Result Comments Source UR HCG QUAL 2019-03-30 08:30:00 Test Item Value Reference Range Interpretation Comme nts UR HCG QUAL (test code = HCGQLU) NEGATIVE NEG Very dilute urines with a low specific gravity may not contain lead generation representative levels of hCG.
[2021-07-03] MEDS ORDERED: KETAMINE HCL 500 MG/5 ML VIAL ONE (08:37)
[2021-07-03 08:48] LABS: Absolute Lymphocytes (CBC) 5.1 K/uL (0.7-4.9); Basophils % 0.3 % (0-1.3); Hematocrit 39.3 % (36.0-45.0); Lymphocytes % 45.8 % (15.3-44.8); RBC Red Blood Cell Count 3.84 M/uL (3.86-4.86)
[2021-07-03 08:56] LABS: Protime INR 1.13
[2021-07-03 09:05] LABS: ALT/SGPT 44 U/L (12-78); AST/SGOT 32 U/L (15-37); Albumin 4.1 g/dL (3.4-5.0); Alkaline Phosphatase 103 U/L (45-117); BUN Blood Urea Nitrogen 9 mg/dL (7-18); Bicarbonate 21 mmol/L (21-32); Bilirubin Direct 0.3 mg/dL (0-0.2); Bilirubin Total 0.8 mg/dL (0.2-1.0); Glucose Level 164 mg/dL (74-106); Potassium 4.1 mmol/L (3.5-5.1); Protein, Total 7.6 g/dL (6.4-8.2); Sodium Level 141 mmol/L (136-145)
--- NOTE | 2021-07-03 09:09 | RAD REPORT ---
EXAM DESCRIPTION: CT - Head Brain Wo Cont - 07/03/2021 8:56 am CLINICAL HISTORY: SEIZURE COMPARISON: HEAD BRAIN W O CONTRAST dated 04/08/2015 TECHNIQUE: All CT scans are performed using dose optimization technique as appropriate and may inclu de automated exposure control or mA/KV adjustment according to patient size. FINDINGS: No intracranial hemorrhage, hydrocephalus or extra-axial fluid collection.No areas of brai n edema or evidence of midline shift. Basal ganglia mineralization. This is age advanced. Scattered p arenchymal calcifications are present in the posterior cranial fossa. . The paranasal sinuses and mastoids are clear. The calvarium is intact. IMPRESSION: No acute intracranial abnormality. 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 In addition, there are some parenchymal calcifications. This could be s equela of remote infection or metabolic.
--- NOTE | 2021-07-03 09:33 | ER ---
Nurse's Notes [facility] Name: Shavon Adhikari Age: 20 yrs Sex: Female : 2000 Arrival Date: 07/03/2021 Time: 08:18 Bed 2 Private MD: Diagnosis: Other seizures Presentation: 07/03 08:18 Chief complaint: EMS states: "family called 911 after patient had a seizure. seizure al4 lasted 15 min and family stated the patient was convulsing. pt was post ictal when we arrived. pt has a past medical history of seizures but has not had one since 2014. pt is non verbal at baseline.". Coronavirus screen: At this time, the client does not indicate any symptoms associated with coronavirus-19. Ebola Screen: No symptoms or risks identified at this time. 08:18 Method Of Arrival: EMS: [facility] al4 08:18 Initial Sepsis Screen: Does the patient meet any 2 criteria?. Risk Assessment: Do you al4 want to hurt yourself or someone else? Unable to obtain. Onset of symptoms was July 03, 2021. 08:18 Acuity: LETITIA 2 al4 09:24 Initial Sepsis Screen: Does the patient have a suspected source of infection? No. tw2 Patient's initial sepsis screen is negative. Triage Assessment: 08:18 General: Appears distressed, uncomfortable, Behavior is anxious, fussy, restless, al4 uncooperative, non-verbal at baseline per EMS . 08:18 Pain: Unable to use pain scale. pt is non verbal. EENT: No signs and/or symptoms were al4 reported regarding the EENT system. Cardiovascular: Capillary refill < 3 seconds Patient's skin is warm and dry. Respiratory: Airway is patent Respiratory effort is even, unlabored, Respiratory pattern is regular. GI: No signs and/or symptoms were reported involving the gastrointestinal system. : No signs and/or symptoms were reported regarding the genitourinary system. Derm: No signs and/or symptoms reported regarding the dermatologic system. Musculoskeletal: No signs and/or symptoms reported regarding the musculoskeletal system. 08:18 Neuro: Level of Consciousness is awake, alert, Oriented to none at baseline per family. jd3 family reports 15 min seizure prior to calling EMS. pt appeared post ictal per EMS. pt became combative, restless/anxious in route with EMS to hospital.. PARTNER: 09:52 LMP N/A - tw2 Historical: - Allergies: 08:45 No Known Drug Allergies; tw2 - Home Meds: 08:45 Keppra Oral [Active]; tw2 - PMHx: 09:22 Seizure; nonverbal; tw2 09:22 scoliosis; tw2 - Immunization history:: Adult Immunizations. - Social history:: Smoking status: . Screenin:21 Abuse screen: Denies threats or abuse. Nutritional screening: No deficits noted. tw2 Tuberculosis screening: No symptoms or risk factors identified. Fall Risk Secondary diagnosis (15 points) impaired mobility. Assessment: 08:30 Reassessment: see triage assessment. tw2 08:46 Reassessment: see conscious sedation sheet. tw2 08:47 Reassessment: Patient and/or family updated on plan of care and expected duration. Pain tw2 level reassessed. pt on portable monitor system of cardiac, bp, and pulse ox for transport to CT. pt on NRB at 15L for transport. pt calm, quiet, nad at this time. transported with DAVID Gonsales, Kapil Lopes, Kapil GARCIA and DAVID Spears. 08:55 Reassessment: pt back from CT at this time, parents at bedside, all monitoring returned tw2 to main monitoring system. pt nad. pt pulling NRB off, mother states "she is waking up now cause she is pulling everything off". NRB as blowby. pts ox 100%. pt NAD. still remains calm. 09:52 Reassessment: Patient appears in no apparent distress at this time. Patient and/or tw2 family updated on plan of care and expected duration. Pain level reassessed. 09:52 Reassessment: Patient is alert/active/playful, equal unlabored respirations, skin jd3 warm/dry/pink. pts mother states "yeah we are ready to go home". Vital Signs: 08:24 Weight 31.75 kg (R); tw2 08:27 BP 143 / 120 LL; tw2 08:27 Temp 97.7(TE); tw2 08:44 Pulse 99; Pulse Ox 99% on R/A; tw2 09:20 BP 114 / 78; Pulse 160; Resp 20; Pulse Ox 97% on R/A; tw2 09:33 Pulse 136; Pulse Ox 96% on R/A; tw2 08:27 pt writhing in bed, held by family and staff for safety and trying to get IV line at tw2 this time. ED Course: 08:18 Patient arrived in ED. sp3 08:19 Kashif Gardner PA is PHCP. [facility] 08:19 Gillian Mabry MD is Attending Physician. jm 08:20 Bed in low position. Call light in reach. Side rails up X2. Adult w/ patient. tw2 08:26 Ken Enriquez, RN is Primary Nurse. jd3 08:35 range master on. Pulse ox on. NIBP on. delay d/t pt pulling cords off and writhing tw2 in exam bed. 08:40 Inserted saline lock: 22 gauge in left wrist, using aseptic technique. ,using aseptic tw2 technique. by DAVID Weaver Blood collected. Missed attempt(s): 22 gauge in left wrist. by DAVID Weaver. Bleeding controlled, band aid applied, catheter tip intact. IV discontinued, intact, bleeding controlled, No redness/swelling at site. Pressure dressing applied. 08:45 Arm band placed on. tw2 08:56 CT Head Brain wo Cont In Process Unspecified. EDMS 09:15 Triage completed. al4 10:21 No provider procedures requiring assistance completed. jd3 Administered Medications: 08:26 Not Given (cancelled per dr. ivory): Ativan (LORazepam) 0.5 mg IM once tw2 08:47 Drug: Ketamine 70 mg Route: IVP; Site: left hand; jd3 08:48 Follow up: Response: No adverse reaction; Marked relief of symptoms tw2 Outcome: 09:33 Discharge ordered by . sp3 09:52 Discharged to home via wheelchair, with family. tw2 09:52 Condition: stable 09:52 Discharge instructions given to patient, family, Instructed on discharge instructions, follow up and referral plans. Demonstrated understanding of instructions, follow-up care. 10:00 Patient left the ED. tw2 Signatures: Dispatcher [employer] EDMS Kashif Gardner PA PA Ilda Buenrostro RN RN tw2 Ken Enriquez RN RN jd3 Gillian Mabry MD MD sp3 [place], Danny al4 Corrections: (The following items were deleted from the chart) 09:16 09:06 General: Appears distressed, uncomfortable, Behavior is anxious, fussy, restless, al4 uncooperative, non-verbal at baseline per EMS . al4 :18 09:06 Pain: Unable to use pain scale. pt is non verbal al4 al4 :18 09:06 EENT: No signs and/or symptoms were reported regarding the EENT system. al4 al4 09:06 Cardiovascular: Capillary refill < 3 seconds Patient's skin is warm and dry. al4 al4 : 09:06 Respiratory: Airway is patent Respiratory effort is even, unlabored, Respiratory al4 pattern is regular, al4 : 09:06 GI: No signs and/or symptoms were reported involving the gastrointestinal system. al4 al4 : 09:06 : No signs and/or symptoms were reported regarding the genitourinary system. al4al4 : 09:06 Derm: No signs and/or symptoms reported regarding the dermatologic system. al4 al4 09:06 Musculoskeletal: No signs and/or symptoms reported regarding the musculoskeletal al4 system. al4 09:19 09:15 BP 112 / 94; Pulse 72bpm; Resp 17bpm; Pulse Ox 98% RA; tw2 tw2 10:21 08:40 No provider procedures requiring assistance completed. tw2 jd3 10:23 09:52 Reassessment: pts mother states "yeah we are ready to go home" tw2 jd3
--- NOTE | 2021-07-03 09:33 | EDPHYS ---
Physician Documentation [facility] Name: Shavon Adhikari Age: 20 yrs Sex: Female : 2000 Arrival Date: 07/03/2021 Time: 08:18 Bed 2 Private MD: ED Physician Gillian Mabry HPI: 07/03 09:10 This 20 yrs old Female presents to ER via Unassigned with complaints of sp3 seizure. 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 Patient was last seen here approximately 2014 for a seizure. Patient is currently on Klonopin and Keppra both longstanding medications. Patient's neurologist has had no changes in her medications and she has had no breakthrough seizures recently. This morning patient had an approximately 15-minute episode of tonic-clonic activity after which the family activated EMS. EMS arrived to find patient in a postictal state and initiated transfer here after checking blood glucose and patient having normal vital signs. Upon arrival patient was agitated and combative despite family being at the bedside. Patient is nonverbal and no review of systems are obtainable at this time.. PET NUTRITION SPECIALIST: 09:52 LMP N/A - tw2 Historical: - Allergies: 08:45 No Known Drug Allergies; tw2 - Home Meds: 08:45 Keppra Oral [Active]; tw2 - PMHx: 09:22 Seizure; nonverbal; tw2 09:22 scoliosis; tw2 - Immunization history:: Adult Immunizations. - Social history:: Smoking status: . ROS: 09:12 Unable to obtain ROS due to baseline dementia, Patient is nonverbal at baseline due to sp3 her chromosomal abnormality.. Exam: 09:14 Constitutional: The patient appears Patient is agitated at baseline but is maintaining sp3 her airway moving all extremities. Limited neurological exam but after talking to parents, patient is "her normal self". 09:14 Cardiovascular: Patient has pulses bilaterally equally and is tachycardic in the 1 80-200 range presumably due to agitation.. 09:14 ECG was reviewed by the Attending Physician. EKG obtained later demonstrates sinus tachycardia at 175 bpm with normal intervals, normal QRS, normal axis, nonspecific diffuse ST/T changes without evidence of ischemia. 09:14 Respiratory: Respiratory effort is without difficulty and equal bilaterally. Patient is not tachypneic.. 09:14 Unable to obtain exam due to Limited exam as above noted. Remainder of exam is limited.. Vital Signs: 08:24 Weight 31.75 kg (R); tw2 08:27 BP 143 / 120 LL; tw2 08:27 Temp 97.7(TE); tw2 08:44 Pulse 99; Pulse Ox 99% on R/A; tw2 09:20 BP 114 / 78; Pulse 160; Resp 20; Pulse Ox 97% on R/A; tw2 09:33 Pulse 136; Pulse Ox 96% on R/A; tw2 08:27 pt writhing in bed, held by family and staff for safety and trying to get IV line at tw2 this time. MDM: 08:20 Patient medically screened. [facility] 09:16 Data reviewed: vital signs, nurses notes, EMS record. ED course: 914: After verbal sp3 consent with mom on procedural sedation, patient was given 70 mg of ketamine IV to take patient to CT scan and obtain the rest of her laboratory values. Patient handled course okay and is now waking back up. Patient likely had a breakthrough seizure and if CT scan and laboratory values are negative will discharge patient home to neurology follow-up at this time. I meant highly suspicious for sepsis, meningitis, trauma, ICH, metabolic derangement, drug overdose, trauma, any other critical findings at this time. I discussed this plan with the family and they are okay moving forward and all questions were answered.. 09:32 ED course: Scan reviewed which demonstrates no acute abnormality. No laboratory value sp3 abnormalities either. Patient is slowly waking up from her sedation. Will discharge patient home after she is at her baseline, her heart rate improves, she has recovered. Parents had no further questions and will follow up with her neurologist.. 07/03 08:19 Order name: Acetaminophen; Complete Time: [facility] 07/03 08:19 Order name: Basic Metabolic Panel; Complete Time: [facility] 07/03 08:19 Order name: CBC with Diff; Complete Time: : [facility] 07/03 08:19 Order name: ETOH Level; Complete Time: [facility] 07/03 08:19 Order name: Hepatic Function; Complete Time: [facility] 07/03 08:19 Order name: PT-INR; Complete Time: 09:29 [facility] 07/03 08:19 Order name: Ptt, Activated; Complete Time: : [facility] 07/03 08:19 Order name: Salicylate; Complete Time: 09:29 [facility] 07/03 08:19 Order name: EKG; Complete Time: 08:20 [facility] 07/03 08:19 Order name: EKG - Nurse/Tech; Complete Time: 09:12 [facility] 07/03 08:27 Order name: CT Head Brain wo Cont; Complete Time: 09:29 sp3 07/03 08:19 Order name: IV Saline Lock; Complete Time: 08:43 [facility] 07/03 08:19 Order name: Labs collected and sent; Complete Time: 08:43 [facility] 07/03 08:28 Order name: Monitor; Complete Time: 08:44 sp3 07/03 08:28 Order name: Oxygen; Complete Time: 08:44 sp3 Administered Medications: 08:26 Not Given (cancelled per dr. ivory): Ativan (LORazepam) 0.5 mg IM once tw2 08:47 Drug: Ketamine 70 mg Route: IVP; Site: left hand; jd3 08:48 Follow up: Response: No adverse reaction; Marked relief of symptoms tw2 Disposition Summary: 07/03/21 09:33 Discharge Ordered Location: Home sp3 Condition: Stable sp3 Diagnosis - Other seizures sp3 Followup: sp3 - With: Private Physician - When: Upon discharge from the Emergency Department - Reason: Recheck today's complaints Discharge Instructions: - Discharge Summary Sheet sp3 - Seizure, Adult sp3 Forms: - Medication Reconciliation Form sp3 - Thank You Letter sp3 - Antibiotic Education sp3 - Prescription Opioid Use sp3 Signatures: Dispatcher [employer] EDMS Kashif Gardner PA PA jmm Wise, Tara RN RN tw2 Ken Enriquez RN RN jd3 Gillian Mabry MD MD sp3 Corrections: (The following items were deleted from the chart) 08:26 08:19 Suicide Screening ([place]) ordered. gisella jd3
[2021-07-03 10:15] VITALS: TEMP 97.7
[2021-07-03 10:17] VITALS: BP 114/78
[2021-07-03 10:19] VITALS: O2SAT 96
== END 2021-07-03 10:00 | disposition home or self-care (01) ==
LOC: ER 08:13
DX: R56.9 Unspecified convulsions (principal)
CPT/HCPCS: 36415; 70450; 80048; 80076; 80320; 80329; 85025; 85610; 85730; 93005; 96374; 99285